=== PATIENT | female | born 1990 | race Caucasian/White ===

== ENCOUNTER → 2018-11-11 17:12 | Outpatient (CLI) | payer OTHER, SELFPAY ==
[2018-11-11 17:53] LABS: HCG,Quantitative 0 mIU/mL
== END ==
PROVIDERS: Visit Provider Obstetrics & Gynecology
DX: Z34.90 Encounter for supervision of normal pregnancy, unspecified, unspecified trimester (principal)
CPT/HCPCS: 36415; 84702

== ENCOUNTER → 2018-12-15 18:01 | Outpatient (CLI) | payer OTHER, SELFPAY ==
[2018-12-17 18:49] LABS: Progesterone 18.6 ng/mL (.)
== END ==
PROVIDERS: Visit Provider Obstetrics & Gynecology
DX: N97.0 Female infertility associated with anovulation (principal)
CPT/HCPCS: 36415; 84144

== ENCOUNTER → 2019-06-30 17:22 | Outpatient (CLI) | payer MEDICAID, SELFPAY ==
[2019-06-30 18:07] LABS: Basophils % 0.3 % (0.1-2.0); Eosinophils # 0.1 K/mm3 (0.0-0.4); Eosinophils % 1.1 % (0.1-12.0); Hematocrit 38.5 % (37.0-47.0); Hemoglobin 13.3 g/dL (12.2-16.2); Lymphocytes # 1.3 K/mm3 (0.7-4.5); Lymphocytes % 14.2 % (10-50); Mean Corpuscular HGB Conc 34.7 g/dL (31.8-35.4); Mean Corpuscular Hemoglobin 30.6 pg (27.0-31.2); Mean Corpuscular Volume 88.2 fl (81-99); Mean Platelet Volume 9.8 fl (7.4-10.4); Monocytes # 0.4 K/mm3 (0.1-1.0); Monocytes % 3.9 % (1.7-9.3); Neutrophils # 7.5 K/mm3 (1.8-7.8); Neutrophils % 80.5 % (37.0-80.0); Platelet Count 204 K/mm3 (142-424); Red Blood Count 4.36 M/mm3 (4.20-5.40); Red Cell Distribution Width 13.3 % (11.5-17.5); White Blood Count 9.3 K/mm3 (4.8-10.8)
[2019-06-30 18:44] LABS: Alanine Aminotransferase 9 U/L (12-78); Albumin Level 4.6 g/dl (3.5-5.0); Albumin/Globulin Ratio 1.6 (1.1-1.8); Alkaline Phosphatase 82 U/L (38-126); Anion Gap 11.1 mEq/L (5-15); Aspartate Amino Transferase 26 U/L (14-36); Bilirubin,Total 0.4 mg/dl (0.2-1.3); Blood Urea Nitrogen 18 mg/dl (7-17); Calcium 9.8 mg/dl (8.4-10.2); Carbon Dioxide 25 mmol/L (22.0-30.0); Chloride 106 mmol/L (98-107); Chol/HDL Ratio 1.9 (1-3.5); Cholesterol 124 mg/dl (140-200); Estimated Glomerular Filt Rate 100 ml/min (>60); GFR (African American) 121 ML/MIN (>60); Globulin 2.9 g/dL (1.3-3.2); Glucose 100 mg/dl (74-100); HDL Cholesterol 64 mg/dl (40-60); Potassium 4.1 mmoL/L (3.5-5.1); Sodium 138 mmol/L (136-145); Total Protein,Serum 7.5 g/dl (6.3-8.2); Triglycerides 44 mg/dl (30-150); VLDL Cholesterol 9 mg/dL (0-40)
[2019-06-30 18:56] LABS: Direct LDL Cholesterol 75.95 mg/dL (100-129)
[2019-06-30 18:59] LABS: T4 (Thyroxine) 9.8 ug/dl (5.53-11.0)
[2019-06-30 19:13] LABS: Thyroid Stimulating Hormone 2.35 uIU/mL (0.465-4.68)
[2019-07-02 09:57] LABS: Vitamin D 25 Hydroxy 48.8 ng/mL (30.0-100.0)
== END ==
PROVIDERS: Visit Provider Emergency Medicine
DX: M79.2 Neuralgia and neuritis, unspecified (principal)
CPT/HCPCS: 80053; 80061; 82652; 84436; 84443; 85025

== ENCOUNTER 2019-07-24 18:20 | Emergency (ER) | payer MEDICAID, SELFPAY ==
[2019-07-24 18:21] VITALS: BP 150/101; PULSE 80; RESP 18; TEMP 36.7; O2SAT 98; BMI 18.8
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
[2019-07-24 21:20] VITALS: BP 125/75; PULSE 76; RESP 17; TEMP 36.7; O2SAT 98
== END 2019-07-24 21:22 | disposition home or self-care (01) ==
PROVIDERS: Emergency Provider Emergency Medicine; PCP Emergency Medicine
DX: S61.012A Laceration without foreign body of left thumb without damage to nail, initial encounter (principal); W26.0XXA Contact with knife, initial encounter; Y92.019 Unspecified place in single-family (private) house as the place of occurrence of the external cause; Z23 Encounter for immunization; Z88.0 Allergy status to penicillin; Z88.5 Allergy status to narcotic agent; Z91.040 Latex allergy status; F17.210 Nicotine dependence, cigarettes, uncomplicated; F19.11 Other psychoactive substance abuse, in remission
CPT/HCPCS: 12001; 90471; 90714; 99282

== ENCOUNTER 2019-09-25 19:10 | Emergency (ER) | payer MEDICAID, SELFPAY ==
[2019-09-25 19:41] VITALS: BMI 18.8
--- NOTE | 2019-09-25 19:56 | HMH.EDUTC ---
[facility] [place] Clinical Impression: Bronchitis, Viral syndrome Disposition: Home, Self-Care Condition on Discharge: Good Instructions: Acute Bronchitis, DI for Acute Bronchitis, Preventing the Spread of Coronavirus Discharge Instructions Additional Instructions: Drink plenty of fluids. Take tylenol or ibuprofen for pain or fever. Take the medications as directed. Follow up with your regular doctor. GO TO THE ER FOR ANY WORSENING SYMPTOMS FOLLOW THE DIRECTIONS ON THE COVID-19 HAND OUT THAT WE GAVE YOU REGARDING SELF-ISOLATION UNTIL YOU KNOW YOUR COVID-19 RESULTS Prescriptions: Albuterol Sulfate [Albuterol Sulfate Hfa] 2 puffs IH Q6HP PRN 30 Days #1 hfa.aer.ad PRN Reason: Shortness Of Breath Transmission Status: Received by [facility] Azithromycin [Z-Chavez 250mg Tab*] 250 mg PO UD DOSE PK #6 tab Transmission Status: Received by [facility] Referrals: Jamir Styles MD [Primary Care Provider] - Forms: Work/School Release Time of Disposition: 19:59 Medical Decision Making - Medical Records Medical records reviewed: No: I reviewed the patient's medical records. - Leonardo Inquiry Pt receiving controlled substance: No Vital Signs: 09/25/19 20:01 09/25/19 20:08 Temperature 98.4 F 98.4 F Temperature Source Oral Pulse Rate 88 Pulse Rate [Right] 88 Respiratory Rate 20 20 Blood Pressure 137/85 Blood Pressure [Right Arm] 137/85 Blood Pressure Mean [Right Arm] 102 Blood Pressure Source [Right Arm] Automatic Cuff Blood Pressure Position [Right Arm] Sitting 02 Sat by Pulse Oximetry 96 Oxygen Delivery Method Room Air - Lab Data Lab results reviewed: Yes: I reviewed the patient's lab results. Lab Results 09/25/19 19:57: Strep Scn Rapid Clinic Negative Orders (Tests/Meds): ORDERS Category Date Time Status Coronavirus 19 Swab (OUTPT) Routine Lab 09/25/19 19:48 Received Strep Screen Confirmation Stat Micro 09/25/19 19:57 Received [facility] [place] HPI - General Stated complaint: covid symptoms Time Seen by Provider: 09/25/19 19:56 - History of Present Illness Provider Complaint: She reports that she has had a cough, chest congestion, head ache and feeling bad for the past 2 days. - Related Data Home Medications Medication Instructions Recorded Confirmed buprenorphine 8 mg-naloxone 2 mg 1 tab SUBLINGUAL BID tab 09/30/18 07/26/19 sublingual tablet Previous Rx's Medication Instructions Recorded prednisone 10 mg tablet 10 mg PO BID #10 tab 06/30/19 cephALEXin [Keflex 500mg Cap] 500 mg PO TID #30 cap 07/24/19 pantoprazole 40 mg tablet,delayed 40 mg PO DAILY #90 tab 07/28/19 release gabapentin 800 mg tablet 800 mg PO TID #90 tab 08/25/19 Albuterol Sulfate [Albuterol 2 puffs IH Q6HP PRN 30 Days #1 09/25/19 Sulfate Hfa] hfa.aer.ad Azithromycin [Z-Chavez 250mg Tab*] 250 mg PO UD DOSE PK #6 tab 09/25/19 Allergies Allergy/AdvReac Type Severity Reaction Status Date / Time acetaminophen Allergy Unknown Verified 07/26/19 13:14 [From TYLENOL-CODEINE #3] amoxicillin [AMOXICILLIN] Allergy Unknown Verified 07/26/19 13:14 codeine Allergy Unknown Verified 07/26/19 13:14 [From TYLENOL-CODEINE #3] Penicillins [PENICILLINS] Allergy Unknown Verified 07/26/19 13:14 latex Allergy Verified 07/26/19 13:14 tramadol [From Ultram] Allergy Verified 07/26/19 13:14 [facility] History - Hepatitis A Screen Attestation statement:: This patient has been screened for Hepatitis A risk factors. I have reviewed the patient's past medical history: Yes Medical History: Denies:: Cancer, Diabetes Mellitus Type 1, Diabetes Mellitus Type 2, MRSA Other Surgeries: Yes: Appendectomy, Amputation: No Fractures: No Comment: 2003-fatty cyst removed. 2005-fatty cytst removed. 2013-D&E X 2. 11/28-R. Paul, [employer]. 11/28/13-*C/S - Social History Smoking Status: Current every day smoker Tobacco Type: cigarettes # Packs/Day (ciga
[2019-09-25 20:01] VITALS: BP 137/85; PULSE 88; RESP 20; TEMP 36.9; O2SAT 96; BMI 18.8
[2019-09-25 20:08] VITALS: BP 137/85; PULSE 88; RESP 20; TEMP 36.9; O2SAT 96
[2019-09-25 20:16] LABS: UTC Strep Screen (Rapid) Negative (Negative)
== END 2019-09-25 20:15 | disposition home or self-care (01) ==
PROVIDERS: Emergency Provider Nurse Practitioner Family; PCP Emergency Medicine
DX: J20.9 Acute bronchitis, unspecified (principal); B34.9 Viral infection, unspecified; F17.210 Nicotine dependence, cigarettes, uncomplicated; Z88.0 Allergy status to penicillin; Z88.6 Allergy status to analgesic agent; Z03.818 Encounter for observation for suspected exposure to other biological agents ruled out
CPT/HCPCS: 87880; 99202; U0003

== ENCOUNTER 2020-03-01 18:59 | Emergency (ER) | payer MEDICAID, SELFPAY ==
[2020-03-01 19:20] VITALS: BP 142/85; PULSE 81; RESP 14; TEMP 36.7; O2SAT 98; BMI 20.6
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
[2020-03-01 20:03] LABS: Apearance,Urine Slightly Cloudy (Clear); Color,Urine Dark Yellow (Yellow); PH,Urine 6.5 (5.0-8.5)
[2020-03-01 20:04] LABS: Bilirubin,Urine Negative (Negative); Blood, Urine Negative (Negative); Glucose,Urine (UA) Negative (Negative); Ketones,Urine Negative (Negative); Protein,Urine Negative (Negative); UTC Leukocyte Esterase,Urine Negative (Negative); Urobilinogen,Urine 0.2 EU/dl (0.2)
[2020-03-01 20:05] LABS: UTC Nitrate,Urine Positive (Negative)
[2020-03-01 20:10] VITALS: BP 142/85; PULSE 81; RESP 14; TEMP 36.7; O2SAT 98
== END 2020-03-01 20:19 | disposition home or self-care (01) ==
PROVIDERS: Emergency Provider Physician Assistant; PCP Emergency Medicine
DX: Z20.822 Contact with and (suspected) exposure to COVID-19 (principal); N30.00 Acute cystitis without hematuria; K21.9 Gastro-esophageal reflux disease without esophagitis; F19.11 Other psychoactive substance abuse, in remission; F17.210 Nicotine dependence, cigarettes, uncomplicated
CPT/HCPCS: 81003; 87086; 99202; G0463; U0003

== ENCOUNTER 2020-03-08 19:36 | Emergency (ER) | payer MEDICAID, SELFPAY ==
[2020-03-08 19:34] VITALS: BP 133/103; PULSE 98; RESP 14; TEMP 36.6; O2SAT 98; BMI 19.5
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
[2020-03-08 19:54] LABS: Basophils # 0.1 K/mm3 (0-0.2); Basophils % 0.5 % (0.1-2.0); Eosinophils # 0.1 K/mm3 (0.0-0.4); Eosinophils % 0.9 % (0.1-12.0); Hemoglobin 14.9 g/dL (12.2-16.2); Lymphocytes # 2.1 K/mm3 (0.7-4.5); Lymphocytes % 21.5 % (10-50); Mean Corpuscular HGB Conc 33.2 g/dL (31.8-35.4); Mean Corpuscular Volume 90.5 fl (81-99); Mean Platelet Volume 10.2 fl (7.4-10.4); Monocytes # 0.4 K/mm3 (0.1-1.0); Monocytes % 4.4 % (1.7-9.3); Neutrophils # 7.3 K/mm3 (1.8-7.8); Neutrophils % 72.7 % (37.0-80.0); Platelet Count 182 K/mm3 (142-424); Red Blood Count 4.97 M/mm3 (4.20-5.40); Red Cell Distribution Width 13.1 % (11.5-17.5)
--- NOTE | 2020-03-08 19:54 | PC.NURSE ---
pt completed po contrast
[2020-03-08 19:55] LABS: Urine Pregnancy, HCG Qual. Negative (Negative)
[2020-03-08 20:01] LABS: Alanine Aminotransferase 13 U/L (12-78); Albumin Level 4.6 g/dl (3.5-5.0); Albumin/Globulin Ratio 1.6 (1.1-1.8); Alkaline Phosphatase 72 U/L (38-126); Anion Gap 11.8 mEq/L (5-15); Aspartate Amino Transferase 25 U/L (14-36); Bilirubin,Total 0.4 mg/dl (0.2-1.3); Blood Urea Nitrogen 13 mg/dl (7-17); Calcium 9.4 mg/dl (8.4-10.2); Carbon Dioxide 25 mmol/L (22.0-30.0); Chloride 106 mmol/L (98-107); Creatinine Clearance Estimated 119 mL/min (50-200); Estimated Glomerular Filt Rate 99 ml/min (>60); GFR (African American) 120 ML/MIN (>60); Globulin 2.9 g/dL (1.3-3.2); Glucose 89 mg/dl (74-100); Sodium 140 mmol/L (136-145); Total Protein,Serum 7.5 g/dl (6.3-8.2)
[2020-03-08 20:04] VITALS: BP 142/97; PULSE 105; O2SAT 99
[2020-03-08 20:05] LABS: Potassium 2.8 mmoL/L (3.5-5.1)
--- NOTE | 2020-03-08 20:06 | PC.NURSE ---
notified of potassium of 2.8
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
[2020-03-08 20:12] LABS: Microscopic, Urine URINE MICROSCOPIC (MICROSCOPIC)
[2020-03-08 20:13] LABS: Appearance,Urine CLEAR (Clear); Bilirubin,Urine Negative (Negative); Blood, Urine Negative (Negative); Color,Urine YELLOW (Yellow); Glucose,Urine (UA) Negative (Negative); Ketones,Urine Negative (Negative); Leukocyte Esterase,Urine Negative (Negative); Nitrate,Urine Negative (Negative); PH,Urine 6.5 (5.0-8.5); Protein,Urine TRACE (Negative); Urobilinogen,Urine 0.2 EU/dl (0.2)
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
[2020-03-08 20:30] VITALS: BP 141/86; PULSE 78; O2SAT 99
[2020-03-08 20:32] LABS: Amorphous Sediment,Urine 1+ /lpf; Mucus,Urine 1+ /lpf
[2020-03-08 20:47] LABS: Magnesium 1.7 mg/dl (1.6-2.3)
[2020-03-08 22:00] VITALS: BP 143/81; PULSE 85; O2SAT 99
--- NOTE | 2020-03-08 22:18 | PC.NURSE ---
pt returned from ct scan
[2020-03-08 22:30] VITALS: BP 115/78; PULSE 74; O2SAT 96
[2020-03-08 23:10] VITALS: BP 131/73; PULSE 90; RESP 14; TEMP 36.6; O2SAT 99
--- NOTE | 2020-03-08 23:17 | PC.NURSE ---
soft cervical collar applied pt tolerated well and verbalize instructions
== END 2020-03-08 23:12 | disposition home or self-care (01) ==
PROVIDERS: Emergency Provider Emergency Medicine; PCP Emergency Medicine
DX: S00.03XA Contusion of scalp, initial encounter (principal); S13.9XXA Sprain of joints and ligaments of unspecified parts of neck, initial encounter; S39.91XA Unspecified injury of abdomen, initial encounter; V43.52XA Car driver injured in collision with other type car in traffic accident, initial encounter; Y92.414 Local residential or business street as the place of occurrence of the external cause
CPT/HCPCS: 29799; 70450; 71045; 72125; 72170; 74177; 80053; 81001; 81025; 83735; 85025; 96375; 99283; J2405; Q9967

== ENCOUNTER → 2020-03-26 09:00 | Outpatient (CLI) | payer MEDICAID, SELFPAY ==
--- NOTE | 2020-03-26 09:05 | NM_ITS ---
PROCEDURE: NM BONE SCAN WHOLE BODY CLINICAL INDICATION: abnormal CT Scan Sclerotic lesions of the spine COMPARISON: CT CT ABDOMEN PELVIS W CON from 03/08/[address] HEAD/BRAIN WO CON from 03/08/2020 FINDINGS: Dose: 24.8 mCi technetium MDP Anterior and posterior images are obtained of the entire skeleton along with oblique images of this thoracic and lumbar spine. No focal abnormal activity is evident. Spur specifically, no abnormal activity present within the lumbar spine. The sclerotic lesions at T12-L1 L2 and L3 do not show increased activity. This would therefore suggest benign etiology of the sclerotic lesions. Follow-up is suggested to confirm stability. There is some increased activity in the medial aspect of the ilium on both sides however, these areas have an unremarkable appearance on the CT scan. There is a small focus of increased activity in the central aspect of the frontal region and in the left parietal bone. IMPRESSION: 1. No abnormal activity in the lumbar spine that would correspond to the sclerotic lesions on the CT scan. Benign sclerotic process is considered. Consider follow-up CT scan in 3-6 months to confirm stability. 2. Small focus of increased activity in the central aspect of the frontal area and in the left parietal region. These are questionable clinical significance and could even be due to contamination artifact. Dictated by: Arturo Sy MD 03/27/2020 20:47 Arturo Sy MD in [place] 03/27/2020 20:47
== END ==
PROVIDERS: PCP Emergency Medicine; Visit Provider Emergency Medicine
DX: R93.89 Abnormal findings on diagnostic imaging of other specified body structures (principal)
CPT/HCPCS: 78306; A9503

== ENCOUNTER 2020-05-13 16:14 | Emergency (ER) | payer MEDICAID, SELFPAY ==
[2020-05-13 16:48] VITALS: BP 136/67; PULSE 71; RESP 16; TEMP 37.3; O2SAT 97; BMI 20.5
--- NOTE | 2020-05-13 17:03 | HMH.EDUTC ---
[facility] [place] Dis[place] Clinical Impression: Strep throat Disposition: Home, Self-Care Condition on Discharge: Good Instructions: DI for Strep Throat, Strep Throat Additional Instructions: *If you did not take Penicillin shot or was unable to, start taking antibiotic immediately and make sure that you take it for the FULL length of time although you should start to feel better in 24-48 hours *change toothbrush and toothpaste 24-48 hours after starting to take antibiotics so you do not reinfect yourself Monitor Temp. Tylenol and/or Ibuprofen as needed. ER if fever is no less than 101 despite alternating Tylenol and Ibuprofen * Encourage fluids, water, Gatorade, powerade, pedialyte if /toddler/or child *Cold fluids, popsicles and ice cream may feel good on his throat *Monitor Temp, Over the counter Motrin or Tylenol as directed/as needed Tylenol every 4 hours and Motrin every 6 hours (as long as your family doctor has told you that you can take it) for fever or pain. and straight to ER if unable to lower temp less than 101.0 after medication given *Warm salt water gargles may help to soothe the throat *Throat Lozenges *Warm fluids like tea with honey may help to soothe the throat *Sleep elevated *Humidifier/Vaporizer Prescriptions: guaiFENesin [Mucinex 600mg tablet] 600 mg PO BID #20 tab.er.12h Transmission Status: Pending to [facility] Azithromycin [Z-Chavez 250mg Tab] 250 mg PO DIRECTED #6 tab Transmission Status: Pending to [facility] Referrals: Jamir Styles MD [Primary Care Provider] - As needed Forms: Work/School Release Time of Disposition: 17:14 Medical Decision Making - Leonardo Inquiry Pt receiving controlled substance: No Leonardo was queried for this patient: No Vital Signs: 05/13/20 16:48 Temperature 99.1 F Temperature Source Oral Pulse Rate [Right] 71 Respiratory Rate 16 Blood Pressure [Right Arm] 136/67 Blood Pressure Mean [Right Arm] 90 Blood Pressure Source [Right Arm] Automatic Cuff Blood Pressure Position [Right Arm] Sitting 02 Sat by Pulse Oximetry 97 - Lab Data Lab results reviewed: Yes: I reviewed the patient's lab results. [facility] [place] HPI - General Stated complaint: COUGH, BODY PAINS Time Seen by Provider: 05/13/20 17:03 Mode of Arrival: Ambulatory Source of Information: Patient Limitations: No Limitations Description of Symptoms (Recalled from Triage Doc. by RN): pt is having a nasal drainage, a productive cough with yellow sputum and a sore throat. HEENT Symptoms (Recalled from RN notes): Yes (nasal drainage and sore throat) Resp Symptoms (Recalled from RN notes): Yes (productive cough with yellow sputum) Skin Symptoms (Recalled from RN notes): No MS Symptoms (Recalled from RN notes): No Functional Status (Recalled from RN notes): na - History of Present Illness Provider Complaint: Patient states that she has been having some sinus pressure and congestion, sore throat, drainage and at times she is coughing up some mucous States that today she has been having body aches, chills and over all not feeling well State that she is an everyday smoker States that often this time of year she gets sinusitis and bronchitis State that work also wanted her to get tested for COVID - Related Data Home Medications Medication Instructions Recorded Confirmed buprenorphine 8 mg-naloxone 2 mg 1 tab SUBLINGUAL BID tab 09/30/18 02/21/20 sublingual tablet Previous Rx's Medication Instructions Recorded Albuterol Sulfate [Albuterol 2 puffs IH Q6HP PRN 30 Days #1 09/25/19 Sulfate Hfa] hfa.aer.ad gabapentin 800 mg tablet 800 mg PO QID #120 tab 02/21/20 [id number]-eeehnfabt-lcsfjcfhf 3.5 1 drp OTIC DAILY 14 Days #10 ml 02/21/20 mg/mL-10,000 unit/mL-1 % ear solution Sulfamethoxazole/Trimethoprim 1 each PO BID 10 Days #20 tab 03/01/20 [Bactrim DS tablet] Cyclobenzaprine HCl [Flexeril 10mg 10 mg PO TID PRN 7 Days #21 tab 03/08/20 tablet] Ketorolac Tr
[2020-05-13 17:10] LABS: UTC Strep Screen (Rapid) Positive (Negative)
[2020-05-13 17:29] VITALS: BP 129/87; PULSE 76; RESP 16; TEMP 36.6
== END 2020-05-13 17:29 | disposition home or self-care (01) ==
PROVIDERS: Emergency Provider Nurse Practitioner; PCP Emergency Medicine
DX: Z20.822 Contact with and (suspected) exposure to COVID-19 (principal); J02.0 Streptococcal pharyngitis; K21.9 Gastro-esophageal reflux disease without esophagitis; J45.909 Unspecified asthma, uncomplicated; F17.210 Nicotine dependence, cigarettes, uncomplicated; Z88.0 Allergy status to penicillin; Z91.040 Latex allergy status
CPT/HCPCS: 87880; 99202; G0463; U0003

== ENCOUNTER → 2020-06-14 13:40 | Outpatient (CLI) | payer MEDICAID, SELFPAY ==
[2020-06-14 15:38] LABS: Amphetamine/Metha Screen,Urine Negative ng/ml (<1000)
[2020-06-14 15:39] LABS: Barbiturates Screen,Urine Negative ng/ml (<200)
[2020-06-14 15:41] LABS: Benzodiazepines Screen,Urine Negative ng/ml (<200); Cannabinoid Screen,Urine Negative ng/ml (<50)
[2020-06-14 15:42] LABS: Cocaine Screen,Urine Negative ng/ml (<300)
[2020-06-14 15:43] LABS: Methadone Screen,Urine Negative ng/ml (<300); Opiate Screen,Urine Negative ng/ml (<300)
[2020-06-14 15:44] LABS: Phencyclidine Screen,Urine Negative ng/ml (<25)
== END ==
PROVIDERS: Visit Provider Nurse Practitioner Family
DX: Z79.899 Other long term (current) drug therapy (principal)
CPT/HCPCS: 80305

== ENCOUNTER 2020-07-30 18:42 | Emergency (ER) | payer MEDICAID, SELFPAY ==
[2020-07-30 19:23] VITALS: BP 114/80; PULSE 77; RESP 17; TEMP 37.1; O2SAT 97; BMI 20.2
[2020-07-30 19:26] VITALS: BP 114/80; PULSE 77; RESP 17; TEMP 37.1; O2SAT 97
--- NOTE | 2020-07-30 19:43 | HMH.EDUTC ---
[facility] [place] Impression: Bronchitis Upper respiratory infection Qualifiers: URI type: unspecified URI Qualified Code(s): J06.9 - Acute upper respiratory infection, unspecified Disposition: Home, Self-Care Condition on Discharge: Good Instructions: DI for Acute Bronchitis Additional Instructions: Drink plenty of fluids. Take tylenol or ibuprofen for pain or fever. Take the medications as directed. Follow up with your regular doctor. GO TO THE ER FOR ANY WORSENING SYMPTOMS Prescriptions: predniSONE [Prednisone 20mg Tab] 20 mg PO BID 4 Days #8 tab Transmission Status: Received by [facility] Benzonatate [Tessalon Perle 100mg Cap] 100 mg PO TIDP PRN #30 cap PRN Reason: Cough Transmission Status: Received by [facility] Azithromycin [Z-Chavez 250mg Tab*] 250 mg PO UD DOSE PK #6 tab Transmission Status: Received by [facility] Referrals: Jamir Styles MD [Primary Care Provider] - Forms: Work/School Release Time of Disposition: 19:45 Medical Decision Making - Medical Records Medical records reviewed: No: I reviewed the patient's medical records. - Leonardo Inquiry Pt receiving controlled substance: No Vital Signs: 07/30/20 19:23 07/30/20 19:26 Temperature 98.8 F 98.8 F Temperature Source Oral Pulse Rate 77 Pulse Rate [Left] 77 Respiratory Rate 17 17 Blood Pressure 114/80 Blood Pressure [Right Arm] 114/80 Blood Pressure Mean [Right Arm] 91 02 Sat by Pulse Oximetry 97 - Lab Data Lab Results 07/30/20 19:26: Strep Scn Rapid Clinic Negative Orders (Tests/Meds): ORDERS Category Date Time Status Covid-19 Nasal PCR ([facility]) Routine Lab 07/30/20 19:37 Received Strep Screen Confirmation Stat Micro 07/30/20 19:[address] [facility] [place] - General Stated complaint: Cough,fever,sore throat,runny nose Time Seen by Provider: 07/30/20 19:43 Mode of Arrival: Ambulatory Source of Information: Patient Limitations: No Limitations Description of Symptoms (Recalled from Triage Doc. by RN): Fever, cough, sore throat, runny nose congestion. Wants Covid test for work. HEENT Symptoms (Recalled from RN notes): Yes Resp Symptoms (Recalled from RN notes): Yes Skin Symptoms (Recalled from RN notes): No MS Symptoms (Recalled from RN notes): No Functional Status (Recalled from RN notes): wnl - History of Present Illness Provider Complaint: She states that she has had a cough, low grade fever, right ear pain and sore throat for the past 2 days. - Related Data Home Medications Medication Instructions Recorded Confirmed buprenorphine 8 mg-naloxone 2 mg 1 tab SUBLINGUAL BID tab 09/30/18 06/14/20 sublingual tablet Previous Rx's Medication Instructions Recorded albuterol sulfate 90 mcg/actuation 2 inh INHALATION Q4-6H PRN #1 each 06/14/20 breath activated powder inhaler gabapentin 800 mg tablet 800 mg PO QID #120 tab 06/14/20 Azithromycin [Z-Chavez 250mg Tab*] 250 mg PO UD DOSE PK #6 tab 07/30/20 Benzonatate [Tessalon Perle 100mg 100 mg PO TIDP PRN #30 cap 07/30/20 Cap] predniSONE [Prednisone 20mg 20 mg PO BID 4 Days #8 tab 07/30/20 Tab] Allergies Allergy/AdvReac Type Severity Reaction Status Date / Time acetaminophen Allergy Unknown Verified 07/30/20 19:11 [From TYLENOL-CODEINE #3] amoxicillin [AMOXICILLIN] Allergy Unknown Verified 07/30/20 19:11 codeine Allergy Unknown Verified 07/30/20 19:11 [From TYLENOL-CODEINE #3] Penicillins [PENICILLINS] Allergy Unknown Verified 07/30/20 19:11 latex Allergy Verified 07/30/20 19:11 tramadol [From Ultram] Allergy Verified 07/30/20 19:11 - Worker's Comp Is this a Worker's Comp case?: No [facility] History - Hepatitis A Screen Drug use history?: No High risk sexual behaviors?: No History of sexually transmitted infection?: No Currently employed?: No Childcare worker?: No Do you have indoor plumbing?: Yes Do you have electricity?: Yes Attestation statement:: T
[2020-07-30 19:45] LABS: UTC Strep Screen (Rapid) Negative (Negative)
== END 2020-07-30 19:48 | disposition home or self-care (01) ==
PROVIDERS: Emergency Provider Nurse Practitioner Family; PCP Emergency Medicine
DX: J20.9 Acute bronchitis, unspecified (principal); J45.909 Unspecified asthma, uncomplicated; K21.9 Gastro-esophageal reflux disease without esophagitis; Z20.822 Contact with and (suspected) exposure to COVID-19; Z91.040 Latex allergy status; Z88.0 Allergy status to penicillin; Z88.5 Allergy status to narcotic agent
CPT/HCPCS: 87880; 99202; G0463; U0003

== ENCOUNTER 2020-08-15 18:51 | Emergency (ER) | payer MEDICAID, SELFPAY ==
[2020-08-15 18:55] VITALS: BP 112/78; PULSE 75; RESP 18; TEMP 36.9; O2SAT 97; BMI 20.2
--- NOTE | 2020-08-15 19:09 | HMH.EDUTC ---
[facility] [place] Clinical Impression: Sinusitis Qualifiers: Sinusitis location: unspecified location Chronicity: unspecified Qualified Code(s): J32.9 - Chronic sinusitis, unspecified Disposition: Home, Self-Care Condition on Discharge: Good Instructions: Sinusitis, DI for Sinusitis, Doxycycline, Prednisone, Guaifenesin, Albuterol Oral Inhalation Additional Instructions: ? Start antibiotic today. Be sure to complete entire prescription even if feeling better ? Monitor temp. Tylenol every 4 hours as needed and / or ibuprofen every 6 hours as needed ( As long as your primary care physician has told you that it ok to take both. For fever/aches/pains ER if no less than 101 despite Tylenol or Motrin ? Humidifier/vaporizer or hot steamy shower ? Inhaler every 4-6 hours as needed like we discussed. If unsure how to use it, ask pharmacist to demonstrate how. Should help open airways and improve cough, wheezing, and shortness of breath ? Mucinex during the day for your cough and cough suppressant only at night. Be sure to drink lots of water. *Start steroid today. Helps with inflammation therefore, cough and wheezing. Follow directions on the package. Reviewed side effects. Patient reports taking them before. Follow up IMMEDIATELY for new or worsening of symptoms OR no noticeable improvement over the next 48-72 hours. 911 immediately for any life threatening symptoms such as chest pain or difficulty breathing Prescriptions: Albuterol Sulfate [Proventil-HFA 90mcg/puff Inh] 1 - 2 puffs IH Q4HP PRN #1 inh PRN Reason: Shortness Of Breath Transmission Status: Pending to [facility] predniSONE [Deltasone 10mg tablet] 10 mg PO BID #10 tab Transmission Status: Pending to [facility] Doxycycline Monohydrate [Doxycycline [place] 100mg Tab] 100 mg PO Q12 7 Days #14 tab Transmission Status: Pending to [facility] guaiFENesin [Mucinex 600mg tablet] 1 - 2 tab PO Q12H PRN #10 tab.er.12h PRN Reason: Congestion Transmission Status: Pending to [facility] Referrals: Jamir Styles MD [Primary Care Provider] - As needed Forms: Work/School Release Time of Disposition: 19:23 Medical Decision Making - Leonardo Inquiry Pt receiving controlled substance: No Leonardo was queried for this patient: No Vital Signs: 08/15/20 18:55 Temperature 98.4 F Temperature Source Oral Pulse Rate [Right Brachial] 75 Respiratory Rate 18 Blood Pressure [Right Arm] 112/78 Blood Pressure Mean [Right Arm] 89 Blood Pressure Source [Right Arm] Automatic Cuff Blood Pressure Position [Right Arm] Sitting 02 Sat by Pulse Oximetry 97 Oxygen Delivery Method Room Air [facility] [place] - General Stated complaint: nausea,cough, diff breathing Time Seen by Provider: 08/15/20 19:11 Mode of Arrival: Ambulatory Source of Information: Patient Limitations: No Limitations Description of Symptoms (Recalled from Triage Doc. by RN): PATIENT C/O COUGH, CONGESTION, HEADACHE, AND NAUSEA X 3 WEEKS HEENT Symptoms (Recalled from RN notes): Yes Resp Symptoms (Recalled from RN notes): Yes Skin Symptoms (Recalled from RN notes): No MS Symptoms (Recalled from RN notes): No Functional Status (Recalled from RN notes): WNL - History of Present Illness Provider Complaint: Patient states that she has been having sinus pain and pressure, cough, chest congestion and nausea States that she was seen about 3weeks ago and given zpack States that she finished it but it did not help States that she is still having sinus pain and feeling like she has pressure behind her eyes States that today she was coughing and it made her feel a little SOA States that she is suppose to use inhaler but she is out - Related Data Home Medications Medication Instructions Recorded Confirmed buprenorphine 8 mg-naloxone 2 mg 1 tab SUBLINGUAL BID tab 09/30/18 08/15/20 sublingual tablet Gabapentin 800 mg PO QID 08/15/20 08/15/20 Previous Rx's Medication Instructions Recorded Freddy
[2020-08-15 19:25] VITALS: BP 112/78; PULSE 75; RESP 18; TEMP 36.9; O2SAT 97
== END 2020-08-15 19:28 | disposition home or self-care (01) ==
PROVIDERS: Emergency Provider Nurse Practitioner; PCP Emergency Medicine
DX: J32.9 Chronic sinusitis, unspecified (principal); K21.9 Gastro-esophageal reflux disease without esophagitis; J45.909 Unspecified asthma, uncomplicated; Z88.0 Allergy status to penicillin; Z88.5 Allergy status to narcotic agent

== ENCOUNTER 2020-08-30 19:47 | Emergency (ER) | payer MEDICAID, SELFPAY ==
[2020-08-30 19:50] VITALS: BP 126/88; PULSE 69; RESP 19; TEMP 36.9; O2SAT 99; BMI 22.8
[2020-08-30 20:22] LABS: UTC Strep Screen (Rapid) Negative (Negative)
--- NOTE | 2020-08-30 20:37 | HMH.EDUTC ---
[facility] [place] Disposition Clinical Impression: Pharyngitis, Bronchitis Disposition: Home, Self-Care Condition on Discharge: Good Instructions: DI for Acute Bronchitis Additional Instructions: Drink plenty of fluids Take the medication as directed. Follow up with your primary care doctor. GO TO THE ER FOR ANY WORSENING SYMPTOMS OR CONCERNS Prescriptions: predniSONE [Prednisone 20mg Tab] 20 mg PO BID 4 Days #8 tab Transmission Status: Received by [id number] Benzonatate [Tessalon Perle 100mg Cap] 100 mg PO TIDP PRN #30 cap PRN Reason: Cough Transmission Status: Received by [id number] Azithromycin [Z-Chavez 250mg Tab*] 250 mg PO UD DOSE PK #6 tab Transmission Status: Received by [id number] Referrals: Jamir Styles MD [Primary Care Provider] - Forms: Work/School Release Time of Disposition: 20:40 Medical Decision Making - Medical Records Medical records reviewed: No: I reviewed the patient's medical records. - Leonardo Inquiry Pt receiving controlled substance: No Vital Signs: 08/30/20 19:50 08/30/20 20:43 Temperature 98.5 F 98.5 F Temperature Source Oral Pulse Rate 69 Pulse Rate [Right Brachial] 69 Respiratory Rate 19 19 Blood Pressure 126/88 Blood Pressure [Right Arm] 126/88 Blood Pressure Mean [Right Arm] 100 Blood Pressure Source [Right Arm] Automatic Cuff Blood Pressure Position [Right Arm] Sitting 02 Sat by Pulse Oximetry 99 Oxygen Delivery Method Room Air - Lab Data Lab results reviewed: Yes: I reviewed the patient's lab results. Lab Results 08/30/20 20:21: Strep Scn Rapid Clinic Negative Orders (Tests/Meds): ORDERS Category Date Time Status Covid-19 Nasal PCR ([facility]) Routine Lab 08/30/20 20:31 Received Strep Screen Confirmation Stat Micro 08/30/20 20:[address] [facility] [place] HPI - General Stated complaint: cough runny nose sore throat sneezing Time Seen by Provider: 08/30/20 20:00 Mode of Arrival: Ambulatory Source of Information: Patient Limitations: No Limitations Description of Symptoms (Recalled from Triage Doc. by RN): PATIENT C/O SORE THROAT SINCE THIS MORNING HEENT Symptoms (Recalled from RN notes): Yes Resp Symptoms (Recalled from RN notes): No Skin Symptoms (Recalled from RN notes): No MS Symptoms (Recalled from RN notes): No Functional Status (Recalled from RN notes): WNL - History of Present Illness Provider Complaint: She states that for the past 3 days she has had a cough, sore throat and sinus congestion. - Related Data Previous Rx's Medication Instructions Recorded Azithromycin [Z-Chavez 250mg Tab*] 250 mg PO UD DOSE PK #6 tab 08/30/20 Benzonatate [Tessalon Perle 100mg 100 mg PO TIDP PRN #30 cap 08/30/20 Cap] predniSONE [Prednisone 20mg 20 mg PO BID 4 Days #8 tab 08/30/20 Tab] Allergies Allergy/AdvReac Type Severity Reaction Status Date / Time acetaminophen Allergy Unknown Verified 07/30/20 19:11 [From TYLENOL-CODEINE #3] amoxicillin [AMOXICILLIN] Allergy Unknown Verified 07/30/20 19:11 codeine Allergy Unknown Verified 07/30/20 19:11 [From TYLENOL-CODEINE #3] Penicillins [PENICILLINS] Allergy Unknown Verified 07/30/20 19:11 latex Allergy Verified 07/30/20 19:11 tramadol [From Ultram] Allergy Verified 07/30/20 19:11 - Worker's Comp Is this a Worker's Comp case?: No [facility] History - Hepatitis A Screen Drug use history?: No High risk sexual behaviors?: No History of sexually transmitted infection?: No Currently employed?: No Childcare worker?: No Do you have indoor plumbing?: Yes Do you have electricity?: Yes Attestation statement:: This patient has been screened for Hepatitis A risk factors. I have reviewed the patient's past medical history: Yes Medical History: Reports:: Asthma, Gastroesophageal Reflux Disease(GERD) Denies:: Cancer, Diabetes Mellitus Type 1, Diabetes Mellitus Type 2, MRSA Other Surgeries: Yes: Appendectomy, Amputation: No F
[2020-08-30 20:43] VITALS: BP 126/88; PULSE 69; RESP 19; TEMP 36.9; O2SAT 99
== END 2020-08-30 20:49 | disposition home or self-care (01) ==
PROVIDERS: Emergency Provider Nurse Practitioner Family; PCP Emergency Medicine
DX: J02.9 Acute pharyngitis, unspecified (principal); J20.9 Acute bronchitis, unspecified; J45.909 Unspecified asthma, uncomplicated; K21.9 Gastro-esophageal reflux disease without esophagitis; F17.210 Nicotine dependence, cigarettes, uncomplicated
CPT/HCPCS: 87880; 99203; G0463; U0003

== ENCOUNTER → 2020-09-02 15:35 | Outpatient (CLI) | payer MEDICAID, SELFPAY ==
[2020-09-02 17:09] LABS: Adenovirus,PCR Not Detected (NotDetected); Bordetella Pertussis Not Detected (NotDetected); Chlamydophila Pneumoniae, PCR Not Detected (NotDetected); Coronavirus 19, PCR Not Detected (NotDetected); Coronavirus 229E Not Detected (NotDetected); Coronavirus NL63 Not Detected (NotDetected); Coronavirus OC43 Not Detected (NotDetected); Coronovirus HKU1,PCR Not Detected (NotDetected); Human Metapneumovirus Not Detected (NotDetected); Influenza A, PCR Not Detected (NotDetected); Influenza AH1, 2009 Not Detected (NotDetected); Influenza AH1, PCR Not Detected (NotDetected); Influenza AH3,PCR Not Detected (NotDetected); Influenza B, PCR Not Detected (NotDetected); Mycoplasma Pneumoniae, PCR Not Detected (NotDetected); Parainfluenza 1, PCR Not Detected (NotDetected); Parainfluenza 2, PCR Not Detected (NotDetected); Parainfluenza 3, PCR Not Detected (NotDetected); Parainfluenza 4, PCR Not Detected (NotDetected); Rhinovirus/Enterovirus Not Detected (NotDetected)
[2020-09-02 23:25] LABS: Respiratory Syncytial Virus Detected (NotDetected)
== END ==
PROVIDERS: PCP Emergency Medicine; Visit Provider Emergency Medicine
DX: Z20.822 Contact with and (suspected) exposure to COVID-19 (principal); B97.4 Respiratory syncytial virus as the cause of diseases classified elsewhere
CPT/HCPCS: 87581; 87633; 87798

== ENCOUNTER 2020-09-11 19:49 | Emergency (ER) | payer MEDICAID, SELFPAY ==
[2020-09-11 20:04] VITALS: BP 130/87; PULSE 92; RESP 18; TEMP 36.8; O2SAT 99; BMI 18.8
--- NOTE | 2020-09-11 20:09 | CT_ITS ---
PROCEDURE INFORMATION: Exam: CT Head Without Contrast Exam date and time: 09/11/2020 8:09 PM Age: 30 years old Clinical indication: Pain; Headache not specified; Patient HX: Headache x 2 days TECHNIQUE: Imaging protocol: Computed tomography of the head without contrast. Radiation optimization: All CT scans at this facility use at least one of these dose optimization techniques: automated exposure control; mA and/or kV adjustment per patient size (includes targeted exams where dose is matched to clinical indication); or iterative reconstruction. COMPARISON: CT HEAD/BRAIN WO CON 03/08/2020 9:35 PM FINDINGS: Brain: No large territorial infarction. No hemorrhage. No mass effect or midline shift. Cerebral ventricles: No ventriculomegaly. Paranasal sinuses: Mucosal thickening of the anterior ethmoid air cells and right frontal sinus. No air-fluid level. Mastoid air cells: Visualized mastoid air cells are well aerated. Bones/joints: No acute fracture. Soft tissues: No significant soft tissue abnormality. IMPRESSION: Chronic appearing paranasal sinus disease.
--- NOTE | 2020-09-11 20:15 | HMH.EDGENADL ---
ED Disposition Clinical Impression: Migraine Qualifiers: Migraine type: without aura Status migrainosus presence: without status migrainosus Intractability: not intractable Qualified Code(s): G43.009 - Migraine without aura, not intractable, without status migrainosus Disposition: Home, Self-Care Condition on Discharge: Good Additional Instructions: Follow-up with your primary care doctor. Return to the emergency department for any new or worsening symptoms. Referrals: Jamir Styles MD [Primary Care Provider] - - Critical Care Critical Care Time: No Attestation: On 09/11/20, the high probability of a clinically significant, sudden or life threatening deterioration of the following system(s) required my full and direct attention, intervention and personal management. The time I documented below is in addition to time spent performing reported procedures but includes the following listed in this critical care notation. Medical Decision Making - Leonardo Inquiry Pt receiving controlled substance: No Vital Signs: 09/11/20 20:04 Temperature 98.2 F Temperature Source Oral Pulse Rate [Right Brachial] 92 H Respiratory Rate 18 Blood Pressure [Right Arm] 130/87 Blood Pressure Mean [Right Arm] 101 Blood Pressure Source [Right Arm] Automatic Cuff Blood Pressure Position [Right Arm] Sitting 02 Sat by Pulse Oximetry 99 Oxygen Delivery Method Room Air Orders (Tests/Meds): ED MEDICATIONS Generic Name Dose Route Start Last Admin Trade Name Freq PRN Reason Stop Dose Admin Lactated Ringer's 1,000 mls @ 999 mls/hr 09/11/20 20:15 09/11/20 20:23 Lactated Ringer's 1000 Ml Bag IV 09/11/20 21:15 999 mls/hr .Q1H1M ALTON Administration Magnesium Sulfate 2 gm/ Sodium 104 mls @ 100 mls/hr 09/11/20 21:52 09/11/20 22:05 Chloride IV 09/11/20 22:54 Not Given ONCE ONE Discontinued Medications Generic Name Dose Route Start Last Admin Trade Name Freq PRN Reason Stop Dose Admin Dexamethasone Sodium Phosphate 8 mg 09/11/20 21:52 09/11/20 22:05 Dexamethasone 4mg/Ml 1ml Vial IV 09/11/20 21:53 Not Given ONCE ONE Dexamethasone Sodium Phosphate 10 mg 09/11/20 22:04 09/11/20 22:07 Dexamethasone 4mg/Ml 5ml Mdv IV 09/11/20 22:05 10 mg ONCE ONE Administration Diphenhydramine HCl 25 mg 09/11/20 20:09 09/11/20 20:23 Diphenhydramine 50mg/Ml Vial IV 09/11/20 20:10 25 mg ONCE ONE Administration Ketorolac Tromethamine 30 mg 09/11/20 20:11 Ketorolac 30mg/Ml Vial IV 09/11/20 20:12 ONCE ONE Ketorolac Tromethamine 30 mg 09/11/20 21:11 09/11/20 21:20 Ketorolac 30mg/Ml Vial IV 09/11/20 21:12 30 mg ONCE ONE Administration Ondansetron HCl 4 mg 09/11/20 20:09 09/11/20 21:21 Ondansetron 4mg Odt SL 09/11/20 20:10 Not Given ONCE ONE Ondansetron HCl 4 mg 09/11/20 21:20 09/11/20 21:21 Ondansetron 4mg/2ml Vial IV 09/11/20 21:21 4 mg ONCE ONE Administration Prochlorperazine Edisylate 10 mg 09/11/20 20:09 09/11/20 20:24 Prochlorperazine 10mg/2ml Vial IV 09/11/20 20:10 10 mg ONCE ONE Administration Medical Decision Narrative: The patient is a 30-year-old female who presents to the emergency department with headache. Differential diagnosis includes subarachnoid hemorrhage, migraine, tension headache, meningitis. The patient has no red flag symptoms. Her headache was not sudden in onset and she has no associated fevers, changes in mental status, meningismus. A complete neuro exam is unremarkable. However because the patient does report this is unlike any headache she has had before is very severe eating it over a 11/24, CT head was obtained. Patient was given IV fluids, Benadryl, and Compazine. On reassessment she stated her headache had improved from a 10 out of 10 to a [address] head was unremarkable. She was given Toradol and Decadron. Shortly after being given these medications the patient requested to leave. She stated her heada
[2020-09-11 22:33] VITALS: BP 145/70; PULSE 73; RESP 17; TEMP 36.8; O2SAT 98
== END 2020-09-11 22:40 | disposition home or self-care (01) ==
PROVIDERS: Emergency Provider Emergency Medicine; PCP Emergency Medicine
DX: G43.009 Migraine without aura, not intractable, without status migrainosus (principal); J45.909 Unspecified asthma, uncomplicated; K21.9 Gastro-esophageal reflux disease without esophagitis; F19.11 Other psychoactive substance abuse, in remission; F17.210 Nicotine dependence, cigarettes, uncomplicated
CPT/HCPCS: 70450; 96365; 96375; 99283; J2405

== ENCOUNTER → 2020-09-30 11:52 | Outpatient (CLI) | payer MEDICAID, SELFPAY ==
[2020-09-30 14:22] LABS: Strep Scrn Group A (Rapid) Negative (Negative)
== END ==
PROVIDERS: PCP Physician Assistant; Visit Provider Nurse Practitioner
DX: Z20.822 Contact with and (suspected) exposure to COVID-19 (principal); J02.9 Acute pharyngitis, unspecified
CPT/HCPCS: 87430; U0003

== ENCOUNTER 2020-10-07 12:11 | Emergency (ER) | payer MEDICAID, SELFPAY ==
[2020-10-07 13:31] VITALS: BMI 19.6
[2020-10-07 13:59] VITALS: BP 0/0; PULSE 72; RESP 16; TEMP 37; O2SAT 98
--- NOTE | 2020-10-07 13:59 | HMH.EDUTC ---
[facility] [place] Disposition Clinical Impression: Strep throat, Exposure to COVID-19 virus Disposition: Home, Self-Care Condition on Discharge: Good Instructions: Strep Throat, DI for Strep Throat, DI for COVID-19 (Suspected or Confirmed ), Preventing the Spread of Coronavirus Discharge Instructions Additional Instructions: Drink plenty of fluids. Take tylenol or ibuprofen for pain or fever. Take the medications as directed. Follow up with your regular doctor. GO TO THE ER FOR ANY WORSENING SYMPTOMS Throw your tooth brush away and get a new one. Quarantine until you know the results of your covid-19 test. If it is positive, the health department should call you and give you further instructions about your length of Quarantine and other thing. Prescriptions: Cefdinir [Omnicef 300mg Capsule] 300 mg PO BID #20 cap Transmission Status: Received by [facility] predniSONE [Prednisone 20mg Tab] 20 mg PO BID 4 Days #8 tab Transmission Status: Received by [facility] Benzonatate [Tessalon Perle 100mg Cap] 100 mg PO TIDP PRN #30 cap PRN Reason: Cough Transmission Status: Received by [facility] Referrals: Jamir Styles MD [Primary Care Provider] - Forms: Work/School Release Time of Disposition: 14:03 Medical Decision Making - Medical Records Medical records reviewed: No: I reviewed the patient's medical records. - Leonardo Inquiry Pt receiving controlled substance: No Vital Signs: 10/07/20 13:59 Temperature 98.6 F Temperature Source Oral Pulse Rate 72 Respiratory Rate 16 Blood Pressure 0/0 L Oxygen Delivery Method Room Air - Lab Data Lab results reviewed: Yes: I reviewed the patient's lab results. [facility] HPI - General Stated complaint: fever, headache, soa, congestion Time Seen by Provider: 10/07/20 13:59 - History of Present Illness Provider Complaint: She c/o sore throat, cough and feeling bad for the past 2 days. - Related Data Home Medications Medication Instructions Recorded Confirmed buprenorphine 8 mg-naloxone 2 mg 1 tab SUBLINGUAL DAILY 09/06/20 09/30/20 sublingual tablet Gabapentin 800 mg PO QID 09/11/20 09/30/20 Previous Rx's Medication Instructions Recorded albuterol sulfate 90 mcg/actuation 2 puff INHALATION Q6H #6.7 g 10/03/20 aerosol inhaler azithromycin 250 mg tablet See Rx Instructions PO .COMPLEX #6 10/03/20 tab prednisone 20 mg tablet 20 mg PO BID #10 tab 10/03/20 Benzonatate [Tessalon Perle 100mg 100 mg PO TIDP PRN #30 cap 10/07/20 Cap] Cefdinir [Omnicef 300mg Capsule] 300 mg PO BID #20 cap 10/07/20 predniSONE [Prednisone 20mg 20 mg PO BID 4 Days #8 tab 10/07/20 Tab] Allergies Allergy/AdvReac Type Severity Reaction Status Date / Time acetaminophen Allergy Unknown Verified 09/30/20 11:09 [From TYLENOL-CODEINE #3] amoxicillin [AMOXICILLIN] Allergy Unknown Verified 09/30/20 11:09 codeine Allergy Unknown Verified 09/30/20 11:09 [From TYLENOL-CODEINE #3] Penicillins [PENICILLINS] Allergy Unknown Verified 09/30/20 11:09 latex Allergy Verified 09/30/20 11:09 tramadol [From Ultram] Allergy Verified 09/30/20 11:09 [facility] History - Hepatitis A Screen Attestation statement:: This patient has been screened for Hepatitis A risk factors. I have reviewed the patient's past medical history: Yes Medical History: Reports:: Asthma, Gastroesophageal Reflux Disease(GERD) Denies:: Cancer, Diabetes Mellitus Type 1, Diabetes Mellitus Type 2, MRSA Other Surgeries: Yes: Appendectomy, Amputation: No Fractures: No Comment: 2003-fatty cyst removed. 2005-fatty cytst removed. 2013-D&E X 2. 11/28-R. Paul, [employer]. 11/28/13-*C/S - Social History Smoking Status: Current every day smoker Tobacco Type: cigarettes # Packs/Day (cigarettes): 1 Alcohol Intake: never Substance Use Type: former substance user, opiates Occupational Status: other Housing: house Household
[2020-10-09 09:39] LABS: UTC Strep Screen (Rapid) Positive (Negative)
== END 2020-10-07 14:05 | disposition home or self-care (01) ==
PROVIDERS: Emergency Provider Nurse Practitioner Family; PCP Emergency Medicine
DX: J02.0 Streptococcal pharyngitis (principal); Z20.822 Contact with and (suspected) exposure to COVID-19
CPT/HCPCS: 87880; 99202; G0463; U0003

== ENCOUNTER → 2021-03-25 16:00 | Outpatient (CLI) | payer MEDICAID, SELFPAY ==
[2021-03-25 22:02] LABS: Basophils % 0.6 % (0.1-2.0); Eosinophils % 0.4 % (0.1-12.0); Hematocrit 46.5 % (37.0-47.0); Hemoglobin 14.3 g/dL (12.2-16.2); Lymphocytes # 1.3 K/mm3 (0.7-4.5); Mean Corpuscular HGB Conc 30.8 g/dL (31.8-35.4); Mean Corpuscular Hemoglobin 29.7 pg (27.0-31.2); Mean Corpuscular Volume 96.5 fl (81-99); Mean Platelet Volume 10.6 fl (7.4-10.4); Monocytes # 0.2 K/mm3 (0.1-1.0); Monocytes % 3.1 % (1.7-9.3); Neutrophils # 5.8 K/mm3 (1.8-7.8); Neutrophils % 77.9 % (37.0-80.0); Platelet Count 235 K/mm3 (142-424); Red Blood Count 4.82 M/mm3 (4.20-5.40); Red Cell Distribution Width 12.8 % (11.5-17.5); White Blood Count 7.4 K/mm3 (4.8-10.8)
[2021-03-25 22:24] LABS: Alanine Aminotransferase 12 U/L (12-78); Albumin Level 4.6 g/dl (3.5-5.0); Albumin/Globulin Ratio 1.7 (1.1-1.8); Alkaline Phosphatase 79 U/L (38-126); Anion Gap 13.7 mEq/L (5-15); Aspartate Amino Transferase 23 U/L (14-36); Bilirubin,Total 0.6 mg/dl (0.2-1.3); Blood Urea Nitrogen 18 mg/dl (7-17); Calcium 10.1 mg/dl (8.4-10.2); Carbon Dioxide 28 mmol/L (22.0-30.0); Chloride 105 mmol/L (98-107); Chol/HDL Ratio 2.6 (1-3.5); Cholesterol 139 mg/dl (140-200); Estimated Glomerular Filt Rate 98 ml/min (>60); GFR (African American) 119 ML/MIN (>60); Globulin 2.7 g/dL (1.3-3.2); Glucose 101 mg/dl (74-100); HDL Cholesterol 54 mg/dl (40-60); Potassium 4.7 mmoL/L (3.5-5.1); Sodium 142 mmol/L (136-145); Total Protein,Serum 7.3 g/dl (6.3-8.2); Triglycerides 37 mg/dl (30-150); VLDL Cholesterol 7 mg/dL (0-40)
[2021-03-25 22:35] LABS: Direct LDL Cholesterol 81.07 mg/dL (100-129)
[2021-03-25 22:40] LABS: 25-OH Vitamin D, Total 25.9 ng/mL (30-100); Free T4 (Free Thyroxine) 1.66 ng/dl (0.78-2.19)
[2021-03-25 22:53] LABS: Thyroid Stimulating Hormone 1.84 uIU/mL (0.465-4.68)
== END ==
PROVIDERS: Visit Provider Emergency Medicine
DX: R10.9 Unspecified abdominal pain (principal); E55.9 Vitamin D deficiency, unspecified
CPT/HCPCS: 80053; 80061; 82306; 84439; 84443; 85025

== ENCOUNTER → 2021-10-02 06:20 | Outpatient (CLI) | payer MEDICAID, SELFPAY | PROVIDERS: PCP Emergency Medicine; Visit Provider Internal Medicine Adolescent Medicine | DX: Z20.822 Contact with and (suspected) exposure to COVID-19 (principal); R50.9 Fever, unspecified | CPT/HCPCS: C9803; U0003; U0005 ==

== ENCOUNTER → 2022-10-02 23:59 | Outpatient (CLI) | payer MEDICAID, SELFPAY ==
[2022-10-02 19:55] LABS: T4 (Thyroxine) 11.8 ug/dl (5.53-11.0)
[2022-10-02 20:08] LABS: Thyroid Stimulating Hormone 3.85 uIU/mL (0.465-4.68)
[2022-10-02 20:28] LABS: Vitamin B12 514 pg/mL (239-931)
== END ==
PROVIDERS: PCP Emergency Medicine; Visit Provider Emergency Medicine
DX: E05.90 Thyrotoxicosis, unspecified without thyrotoxic crisis or storm (principal)
CPT/HCPCS: 82607; 84436; 84443

== ENCOUNTER → 2023-01-04 16:08 | Outpatient (CLI) | payer MEDICAID, SELFPAY ==
[2023-01-04 17:02] LABS: Amphetamine/Metha Screen,Urine Negative ng/ml (<1000)
[2023-01-04 17:03] LABS: Barbiturates Screen,Urine Negative ng/ml (<200); Benzodiazepines Screen,Urine Negative ng/ml (<200)
[2023-01-04 17:04] LABS: Cannabinoid Screen,Urine Negative ng/ml (<50)
[2023-01-04 17:05] LABS: Methadone Screen,Urine Negative ng/ml (<300)
[2023-01-04 17:06] LABS: Opiate Screen,Urine Negative ng/ml (<300); Phencyclidine Screen,Urine Negative ng/ml (<25)
[2023-01-04 17:15] LABS: Cocaine Screen,Urine Negative ng/ml (<300)
== END ==
PROVIDERS: PCP Emergency Medicine; Visit Provider Emergency Medicine
DX: Z79.899 Other long term (current) drug therapy (principal)
CPT/HCPCS: 80305

== ENCOUNTER 2023-04-28 21:08 | Outpatient (CLI) | payer MEDICAID, SELFPAY | END 2023-04-28 23:59 | LOC: LAB.DROPOF 21:08 | PROVIDERS: PCP Nurse Practitioner Family; Visit Provider Nurse Practitioner Family | DX: R05.9 Cough, unspecified (principal); U07.1 COVID-19 | CPT/HCPCS: 87635 ==

== ENCOUNTER 2023-05-09 02:05 | Emergency (ER) | payer MEDICAID, SELFPAY ==
[2023-05-09 02:24] VITALS: BP 143/105; PULSE 82; RESP 20; TEMP 36.8; O2SAT 98; BMI 19.8
--- NOTE | 2023-05-09 02:24 | XR_ITS ---
PROCEDURE INFORMATION: Exam: XR Soft Tissue Neck Exam date and time: 05/09/2023 2:27 AM Age: 32 years old Clinical indication: Other: Globus sensation TECHNIQUE: Imaging protocol: Radiologic exam of the soft tissues of the neck. COMPARISON: No relevant prior studies available. FINDINGS: Airway: Unremarkable. No abnormal narrowing. Soft tissues: Unremarkable. Normal epiglottis. Bones/joints: No acute fracture. IMPRESSION: No acute findings.
--- NOTE | 2023-05-09 02:26 | ED_ITS ---
Discharge Plan Disposition Patient Disposition: Home, Self-Care Condition: Good Prescriptions Prescriptions: No Action albuterol sulfate [Proventil HFA] 90 mcg/actuation HFA aerosol inhaler 2 puff INHALATION Q8H Qty: 8.5 0RF budesonide-formoterol [Symbicort] 80-4.5 mcg/actuation HFA aerosol inhaler 1 inh inhalation BID Qty: 10.2 2RF esomeprazole magnesium 40 mg capsule,delayed release(DR/EC) See Rx Instructions .ROUTE .COMPLEX Qty: 90 3RF Dose Instruction: TAKE 1 CAPSULE 1 TIME EACH DAY Rx Instructions: TAKE 1 CAPSULE 1 TIME EACH DAY buprenorphine-naloxone 8-2 mg tablet, sublingual 1 tab SUBLINGUAL DAILY gabapentin 800 mg tablet 800 mg PO TID Qty: 90 2RF Referrals Follow up/Referrals: Hailee Morales APRN [Staff Physician] - See instructions (globus sensation) Provider,Referral, [Primary Care Provider] - See instructions Activity Restrictions/Add. Instructions Additional Instructions/Restrictions: You were evaluated in the ER. You are appropriate for discharge at this time. Follow-up with GI, they will contact you for an appointment. Make an appointment with your primary care physician for reevaluation on Wednesday or Wednesday, return to the ER with new, worsening, or otherwise concerning symptoms. Clinical Impressions Clinical Impression: Globus sensation Discharge ED Provider: Katerina Blanchard Adult HPI General Chief complaint: PAIN Stated complaint: swollen and sore throat Time Seen by Provider: 05/09/23 02:12 History of Present Illness HPI narrative: 32-year-old female with a history of nerve pain, reflux presents to the ER with concerns of sensation of something being stuck in her throat. Patient states night she ate lasagna and went to bed feeling normal, on Wednesday morning she woke up with this sensation in her throat. Patient states she has been able to eat and drink since that time, but when she belches after drinking pop foamy stuff comes up . She has been able to drink water. She states she ate solids yesterday and had discomfort but everything was able to pass. She denies eating anything with small bones such as fish. Patient states she is also starting to get a mild headache. There is family history of colon cancer, lymph cancer . Patient denies fevers, abdominal pain, shortness of breath, chest pain, dizziness, she thought she was losing weight but my review of her for most recent family medicine encounters dating back to September 2022 demonstrates weight maintaining between 140-150 pounds. Related Data Home Medications Medication Instructions Recorded Confirmed buprenorphine 8 mg-naloxone 2 mg 1 tab sublingual DAILY SUBSTANCE 09/06/20 05/09/23 sublingual tablet ABUSE Previous Rx's Medication Instructions Recorded albuterol sulfate 90 mcg/actuation 2 puff inhalation Q8H Asthma #8.5 01/04/23 aerosol inhaler (Proventil HFA) grams budesonide-formoterol HFA 80 1 inh inhalation BID #10.2 grams 01/04/23 mcg-4.5 mcg/actuation aerosol inhaler (Symbicort) esomeprazole magnesium 40 mg See Rx Instructions .Route 01/04/23 capsule,delayed release .COMPLEX #90 caps gabapentin 800 mg tablet 800 mg PO TID PERIPHEAL NEUROPATHY 03/30/23 #90 tabs Allergies Allergy/AdvReac Type Severity Reaction Status Date / Time acetaminophen Allergy Unknown Verified 05/09/23 02:35 [From TYLENOL-CODEINE #3] amoxicillin [AMOXICILLIN] Allergy Unknown Verified 05/09/23 02:35 codeine Allergy Unknown Verified 05/09/23 02:35 [From TYLENOL-CODEINE #3] Penicillins [PENICILLINS] Allergy Unknown Verified 05/09/23 02:35 latex Allergy Verified 05/09/23 02:35 tramadol [From Ultram] Allergy Verified 05/09/23 02:35 PFSH PFSH Disclaimer: The information contained in this section may have been updated after the patient was seen, as this information can be updated by other users. 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 Hx of gastroesophageal reflux (GERD) History of asthma Surgical History Hx of dilation and curettage Hx of unilateral salpingectomy right Hx of nevus excision History of section History of appendectomy Family History Father Colon cancer Other Family history of diabetes mellitus type II Family history of myocardial infarction Social History Smoking Status: Current every day smoker tobacco type: cigarettes packs per day: 1 years smoked: 16 second hand exposure: No alcohol intake: never substance use type: former substance user and opiates current occupational status: other Travel in the last 8 weeks: None household members: family housing: apartment lives independently: Yes marital status: single education level: high school special michelle needs: No agree to transfusion: No do you feel safe at home: Yes victim of physical abuse: No victim of emotional abuse: No victim of sexual abuse: No would you like helpful sources: No ROS Obtained: Yes All systems reviewed & no additional complaints except as documented Constitutional Constitutional: Denies chills, Denies fever(s), Denies headache(s) and Denies weakness Eyes Eyes: Denies change in vision ENT Ears, Nose, Mouth, and Throat: Denies dizziness, Denies headache(s), Denies nasal congestion, Reports odynophagia (Globus sensation) and Denies sore throat Cardiovascular Cardiovascular: Denies chest pain, Denies dyspnea and Denies leg edema Respiratory Respiratory: Denies cough and Denies dyspnea Gastrointestinal Gastrointestingal: Reports odynophagia (Globus sensation); Denies constipation, diarrhea, nausea or vomiting Genitourinary Female Genitourinary: Denies dysuria Musculoskeletal Musculoskeletal: Denies arthralgias, Denies myalgias, Denies numbness and Denies tingling Integumentary/Breasts Skin/Breast: Denies change in pigmentation Neurologic Neurologic: Denies dizziness, Denies headache(s), Denies numbness, Denies tingling and Denies weakness Physical Exam General General appearance: alert and in no apparent distress Head Head exam: atraumatic and normocephalic Eye Eye exam: Present PERRL and EOMI ENT ENT exam: Present mucous membranes moist Neck Neck exam: Present normal inspection, full ROM and trachea midline; Absent tenderness (Palpation over the area of discomfort does not identify any mass or tenderness, patient identifies the area inferior to her cricoid cartilage as the area with discomfort but it is not reproducible with palpation), lymphadenopathy or thyromegaly Chest Chest inspection: Present symmetric chest wall rise Respiratory Respiratory exam: Absent respiratory distress or stridor Cardiovascular Cardiovascular exam: Present regular rate and normal rhythm Abdominal Exam Abdominal exam: Present soft; Absent distention or tenderness Extremities Exam Extremities exam: Present full ROM Neurological Exam Neurological exam: Present alert and oriented X3; Absent motor sensory deficit Psychiatric Psychiatric exam: Present normal affect and normal mood Skin Skin exam: Present warm and dry Medical Decision Making Medical Records Medical records reviewed: Yes I reviewed the patient's medical records. MR Comment: Stable weight Leonardo Inquiry Pt receiving controlled substance: No Vital Signs: 05/09/23 02:24 Temperature 98.3 F Temperature Source Oral Pulse Rate [Right Brachial] 82 Respiratory Rate 20 Blood Pressure [Right Arm] 143/105 H Blood Pressure Mean [Right Arm] 117 Blood Pressure Source [Right Arm] Automatic Cuff Blood Pressure Position [Right Arm] Sitting 02 Sat by Pulse Oximetry 98 Oxygen Delivery Method Room Air Lab Data Lab Results 05/09/23 02:50: WBC 9.0, RBC 4.93, Hgb 15.0, Hct 47.4 H, MCV 96.2, MCH 30.5, M CHC 31.7 L, RDW 12.8, Plt Count 200, MPV 9.8, Neut % (Auto) 69.1, Lymph % (Auto) 27.4, [place] % (Auto) 2.4, Eos % (Auto) 0.2, Baso % (Auto) 0.8, Neut # (Auto) 6.2, Lymph # (Auto) 2.5, [place] # (Auto) 0.2, Eos # (Auto) 0.0, Baso # (Auto) 0.1, Sodium 141, Potassium 3.3 L, Chloride 103, Carbon Dioxide 33 H, Anion Gap 8.3, BUN 13, Creatinine 0.80, Estimated Creat Clear 103, Estimated GFR 83, Est GFR ( Amer) 101, Glucose 89, Calcium 10.2, Total Bilirubin 0.8, AST 32, ALT 21, Alkaline Phosphatase 62, Total Protein 8.1, Albumin 5.1 H, Globulin 3.0, Albumin/Globulin Ratio 1.7, TSH 2.38, Free T4 1.52 05/09/23 02:50 05/09/23 02:50 Orders (Tests/Meds): ED MEDICATIONS Discontinued Medications Generic Name Dose Route Start Last Admin Trade Name Freq PRN Reason Stop Dose Admin Belladonna Alkaloids 60 ml 05/09/23 02:24 05/09/23 02:56 Belladonna Alkaloids 60 Ml Ml PO 05/09/23 02:25 60 ml ONCE ONE Administration ORDERS Category Date Time Status Neck soft tissue XR [XR soft tissue neck] Stat Exams 05/09/23 02:24 Completed CBC w/Auto Diff [Complete Blood Count Auto Diff] Stat Lab 05/09/23 02:50 Completed CMP [Comprehensive Metabolic Panel] Stat Lab 05/09/23 02:50 Completed Free T4 (Free Thyroxine) Stat Lab 05/09/23 02:50 Completed TSH [Thyroid Stimulating Hormone] Stat Lab 05/09/23 02:50 Completed Medical Decision Narrative: In summary, this 32year old female presents to the emergency department today with a sensation of something stuck in the throat. On initial evaluation patient is hemodynamically stable, afebrile, protecting her airway, tolerating secretions, patient drank water in front of me in the ER successfully. She has no stridor, no masses, no anatomic deviation or abnormality, no lymphadenopathy on palpation and examination of the neck. Remainder of exam benign. Oropharynx clear. I considered food bolus on my differential but have extremely low suspicion for this given patient has been able to tolerate both solids and liquids since onset of her symptoms, I considered lymphadenopathy or thyromegaly but do not appreciate these on exam, I considered small foreign body such as fishbone but history is not consistent with this, I also considered other soft tissue swelling, esophageal spasm, and PATTERNMAKER SAMPLE, RPA, strep. I have extremely low suspicion for strep or peritonsillar abscess based on posterior oropharyngeal exam which did not demonstrate any erythema or swelling, no exudate. I also have extremely low suspicion for retropharyngeal abscess since patient does not have any muffled voice, neck pain, fevers. Basic labs have been ordered to assess blood counts given patient's family history of lymph cancer . I also ordered thyroid studies and soft tissue x-ray of the neck. Patient received GI cocktail. Labs personally reviewed demonstrate no leukocytosis, no anemia, normal cell lines, nonactionable electrolytes, BUN and creatinine normal, normal LFTs, TSH 2.38, free T4 1.52, normal. XR personally interpreted demonstrates no airway deviation, no obvious anatomic abnormalities, retropharyngeal space normal, epiglottis normal. See radiology read for final interpretation. On reassessment, patient's symptoms are stable. She has continued to tolerate oral intake in the ER. She has not had any change in her symptoms, no worsening. She is appropriate for discharge. I provided referral to GI for outpatient follow-up. Patient is amenable to this plan. Patient was given instructions on symptomatic management, follow up instructions, and return precautions for the emergency department. Patient indicated understanding and was discharged in stable condition. Critical Care Critical Care Time Critical Care Time: No
[2023-05-09] MEDS: BELLADONNA ALKALOIDS 60 ML ML PO (02:56)
[2023-05-09 03:00] LABS: Basophils # 0.1 K/mm3 (0-0.2); Basophils % 0.8 % (0.1-2.0); Eosinophils % 0.2 % (0.1-12.0); Hematocrit 47.4 % (37.0-47.0); Lymphocytes # 2.5 K/mm3 (0.7-4.5); Lymphocytes % 27.4 % (10-50); Mean Corpuscular HGB Conc 31.7 g/dL (31.8-35.4); Mean Corpuscular Hemoglobin 30.5 pg (27.0-31.2); Mean Corpuscular Volume 96.2 fl (81-99); Mean Platelet Volume 9.8 fl (7.4-10.4); Monocytes # 0.2 K/mm3 (0.1-1.0); Monocytes % 2.4 % (1.7-9.3); Neutrophils # 6.2 K/mm3 (1.8-7.8); Neutrophils % 69.1 % (37.0-80.0); Platelet Count 200 K/mm3 (142-424); Red Blood Count 4.93 M/mm3 (4.20-5.40); Red Cell Distribution Width 12.8 % (11.5-17.5)
[2023-05-09 03:02] LABS: Chloride 103 mmol/L (98-107); Potassium 3.3 mmoL/L (3.5-5.1); Sodium 141 mmol/L (136-145)
[2023-05-09 03:04] LABS: Alanine Aminotransferase 21 U/L (12-78); Aspartate Amino Transferase 32 U/L (14-36); Blood Urea Nitrogen 13 mg/dl (7-17); Creatinine Clearance Estimated 103 mL/min (50-200); Estimated Glomerular Filt Rate 83 ml/min (>60); GFR (African American) 101 ML/MIN (>60)
[2023-05-09 03:05] LABS: Albumin Level 5.1 g/dl (3.5-5.0); Albumin/Globulin Ratio 1.7 (1.1-1.8); Alkaline Phosphatase 62 U/L (38-126); Anion Gap 8.3 mEq/L (5-15); Bilirubin,Total 0.8 mg/dl (0.2-1.3); Calcium 10.2 mg/dl (8.4-10.2); Carbon Dioxide 33 mmol/L (22.0-30.0); Glucose 89 mg/dl (74-100); Total Protein,Serum 8.1 g/dl (6.3-8.2)
--- NOTE | 2023-05-09 03:24 | PC.NURSE ---
Rounded on pt at this time. Pt voices no needs.
[2023-05-09 03:26] LABS: Free T4 (Free Thyroxine) 1.52 ng/dl (0.78-2.19)
[2023-05-09 03:36] LABS: Thyroid Stimulating Hormone 2.38 uIU/mL (0.465-4.68)
[2023-05-09 03:54] VITALS: BP 124/91; PULSE 72; RESP 15; TEMP 36.7; O2SAT 98
== END 2023-05-09 03:57 | disposition home or self-care (01) ==
PROVIDERS: Emergency Provider Emergency Medicine
DX: R09.A2 Foreign body sensation, throat (principal); F17.210 Nicotine dependence, cigarettes, uncomplicated
CPT/HCPCS: 70360; 80053; 84439; 84443; 85025; 99283

== ENCOUNTER 2024-01-15 23:33 | Emergency (ER) | payer MEDICAID, SELFPAY ==
[2024-01-15 23:37] VITALS: BP 157/99; PULSE 95; RESP 16; TEMP 36.7; O2SAT 98; BMI 17.4
--- NOTE | 2024-01-15 23:39 | CT_ITS ---
PROCEDURE INFORMATION: Exam: CT Abdomen And Pelvis Without Contrast Exam date and time: 01/16/2024 12:24 AM Age: 33 years old Clinical indication: Abdominal pain; Additional info: R flank pain radiating to groin TECHNIQUE: Imaging protocol: Computed tomography of the abdomen and pelvis without contrast. Radiation optimization: All CT scans at this facility use at least one of these dose optimization techniques: automated exposure control; mA and/or kV adjustment per patient size (includes targeted exams where dose is matched to clinical indication); or iterative reconstruction. COMPARISON: CT ABDOMEN PELVIS W CON 03/08/2020 9:46 PM FINDINGS: Lungs: Lung bases are clear. Liver: Normal. No mass. Gallbladder and biliary ducts: Normal. No calcified stones. No ductal dilation. Pancreas: Normal. No ductal dilation. Spleen: Normal. No splenomegaly. Adrenal glands: Normal. No mass. Kidneys and ureters: Normal. No hydronephrosis. Stomach and bowel: Unremarkable. No obstruction. No mucosal thickening. Appendix: No evidence of appendicitis. Intraperitoneal space: Unremarkable. No free air. No significant fluid collection. Vasculature: Unremarkable. No abdominal aortic aneurysm. Lymph nodes: Unremarkable. No enlarged lymph nodes. Urinary bladder: Unremarkable as visualized. Reproductive: Unremarkable as visualized. Bones/joints: Unremarkable. No acute fracture. Soft tissues: Unremarkable. IMPRESSION: No acute findings. Sensitivity for intra-abdominal pathology may be limited in this patient due to lack of contrast combined with paucity of intra-abdominal fat.
[2024-01-15] MEDS: ACETAMINOPHEN 1,000MG/100ML VIAL 1000 MG IV (23:54)
[2024-01-15] MEDS: ONDANSETRON 4MG/2ML VIAL 4 MG IV (23:54)
[2024-01-15 23:57] LABS: Appearance,Urine CLEAR (Clear); Bilirubin,Urine Negative (Negative); Blood, Urine Negative (Negative); Color,Urine YELLOW (Yellow); Glucose,Urine (UA) Negative (Negative); Ketones,Urine Negative (Negative); Leukocyte Esterase,Urine Negative (Negative); Microscopic, Urine URINE MICROSCOPIC (MICROSCOPIC); Nitrate,Urine Negative (Negative); Protein,Urine Negative (Negative); Urobilinogen,Urine 0.2 EU/dl (0.2)
[2024-01-15 23:58] LABS: Basophils # 0.1 K/mm3 (0-0.2); Basophils % 1.4 % (0.1-2.0); Eosinophils # 0.1 K/mm3 (0.0-0.4); Eosinophils % 0.7 % (0.1-12.0); Hematocrit 45.6 % (37.0-47.0); Hemoglobin 15.5 g/dL (12.2-16.2); Lymphocytes # 2.2 K/mm3 (0.7-4.5); Lymphocytes % 26.5 % (10-50); Mean Corpuscular Hemoglobin 30.6 pg (27.0-31.2); Mean Platelet Volume 9.6 fl (7.4-10.4); Monocytes # 0.3 K/mm3 (0.1-1.0); Monocytes % 3.2 % (1.7-9.3); Neutrophils # 5.6 K/mm3 (1.8-7.8); Neutrophils % 68.2 % (37.0-80.0); Platelet Count 194 K/mm3 (142-424); Red Blood Count 5.07 M/mm3 (4.20-5.40); White Blood Count 8.2 K/mm3 (4.8-10.8)
[2024-01-16] VITALS: BP 138/91; PULSE 93; O2SAT 98
[2024-01-16 00:13] LABS: Alanine Aminotransferase 17 U/L (12-78); Albumin/Globulin Ratio 1.7 (1.1-1.8); Alkaline Phosphatase 68 U/L (38-126); Anion Gap 13.2 mEq/L (5-15); Aspartate Amino Transferase 34 U/L (14-36); Bilirubin,Total 0.9 mg/dl (0.2-1.3); Blood Urea Nitrogen 13 mg/dl (7-17); Calcium 9.8 mg/dl (8.4-10.2); Carbon Dioxide 27 mmol/L (22.0-30.0); Chloride 106 mmol/L (98-107); Creatinine Clearance Estimated 90 mL/min (50-200); Estimated Glomerular Filt Rate 83 ml/min (>60); GFR (African American) 100 ML/MIN (>60); Globulin 2.9 g/dL (1.3-3.2); Glucose 92 mg/dl (74-100); Potassium 4.2 mmoL/L (3.5-5.1); Sodium 142 mmol/L (136-145); Total Protein,Serum 7.9 g/dl (6.3-8.2)
--- NOTE | 2024-01-16 00:13 | HMH.EDGENADL ---
Discharge Plan Disposition Patient Disposition: Home, Self-Care Condition: Good Prescriptions Prescriptions: No Action Vraylar 1.5 mg capsule 1.5 mg PO DAILY Qty: 30 3RF hydroxyzine pamoate [Vistaril] 25 mg capsule 25 mg PO TID PRN (Reason: itching) Qty: 60 0RF esomeprazole magnesium 40 mg capsule,delayed release(DR/EC) See Rx Instructions .ROUTE .COMPLEX Qty: 90 3RF Dose Instruction: TAKE 1 CAPSULE 1 TIME EACH DAY Rx Instructions: TAKE 1 CAPSULE 1 TIME EACH DAY gabapentin 800 mg tablet 800 mg PO TID Qty: 90 2RF budesonide-formoterol [Symbicort] 80-4.5 mcg/actuation HFA aerosol inhaler 1 inh inhalation BID Qty: 10.2 2RF albuterol sulfate 90 mcg/actuation HFA aerosol inhaler 2 puff INHALATION Q8H Qty: 8.5 0RF buprenorphine-naloxone 8-2 mg tablet, sublingual 1 tab SUBLINGUAL DAILY Referrals Follow up/Referrals: Sergio Handy APRN [Primary Care Provider] - See instructions Activity Restrictions/Add. Instructions Additional Instructions/Restrictions: You were evaluated in the ER and are appropriate for discharge at this time. Take Tylenol, ibuprofen if needed for pain, do not exceed the recommended dose on the bottle. Drink water and eat a small snack each time you take these medications to avoid side effects. Please make an appointment with your primary care doctor for reevaluation in 2 to 3 days, return to the ER with any new, worsening, or otherwise concerning symptoms as discussed. Clinical Impressions Clinical Impression: Acute right flank pain, Abdominal pain, right lower quadrant Instructions Patient Instructions: DI for Acute Abdominal Pain Print Language Print Language: Amharic Discharge ED Provider: Katerina Blanchard General Adult HPI General Chief complaint: Abdominal Pain Stated complaint: back pain Time Seen by Provider: 01/15/24 23:39 Mode of Arrival: Family Vehicle Source of Information: Patient Limitations: No Limitations Description of Symptoms (Recalled from ER Triage Doc. by RN): Pt states she had sudden onset of right flank pain radiating into her pelvic region Associated with nausea History of Present Illness HPI narrative: 33-year-old female presents to the ER with complaints of sudden onset right back and flank pain radiating into her pelvic region associated with nausea but no vomiting or diarrhea. Patient reports that the pain came on all of a sudden at full strength, she has tried taking ibuprofen without relief. Pain has been going on for 4 to 6 hours. She denies dysuria or hematuria, patient reports no history of kidney stones. She reports she takes Suboxone and gabapentin daily, no other daily medications, she states she does not want any narcotic pain medications. Most recent menstrual period was 1 week ago. She denies fevers, chills, chest pain, headache, dizziness, numbness, tingling, weakness, cough, congestion, or other associated symptoms. Related Data Home Medications ?Medication ?Instructions ?Recorded ?Confirmed buprenorphine 8 mg-naloxone 2 mg 1 tab sublingual DAILY SUBSTANCE 09/06/20 12/28/23 sublingual tablet ABUSE Previous Rx's ?Medication ?Instructions ?Recorded cariprazine 1.5 mg capsule 1.5 mg PO DAILY #30 caps 10/05/23 (Vraylar) hydroxyzine pamoate 25 mg capsule 25 mg PO TID PRN itching #60 caps 10/05/23 (Vistaril) albuterol sulfate 90 mcg/actuation 2 puff inhalation Q8H Asthma #8.5 12/28/23 aerosol inhaler grams budesonide-formoterol HFA 80 1 inh inhalation BID #10.2 grams 12/28/23 mcg-4.5 mcg/actuation aerosol inhaler (Symbicort) esomeprazole magnesium 40 mg See Rx Instructions .Route 12/28/23 capsule,delayed release .COMPLEX #90 caps gabapentin 800 mg tablet 800 mg PO TID PERIPHEAL NEUROPATHY 12/28/23 #90 tabs Allergies Allergy/AdvReac Type Severity Reaction Status Date / Time acetaminophen (From Allergy Unknown Verified 12/28/23 14:29 TYLENOL-CODEINE #3) amoxicillin (AMOXICILLIN) Allergy Unknown Verified 12/28/23 14:29 codeine (From Allergy Unknown Verified 12/28/23 14:29 TYLENOL-CODEINE #3) Penicillins (PENICILLINS) Allergy Unknown Verified 12/28/23 14:29 latex Allergy Verified 12/28/23 14:29 tramadol (From Ultram) Allergy Verified 12/28/23 14:29 [facility] Disclaimer: The information contained in this section may have been updated after the patient was seen, as this information can be updated by other users. 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 Hx of gastroesophageal reflux (GERD) History of asthma Surgical History Hx of dilation and curettage Hx of unilateral salpingectomy right Hx of nevus excision History of section History of appendectomy Family History Father Colon cancer Other Family history of diabetes mellitus type II Family history of myocardial infarction Social History Smoking Status: Current every day smoker tobacco type: cigarettes packs per day: 1 years smoked: 16 second hand exposure: No alcohol intake: former year quit: 2009 substance use type: former substance user and opiates current occupational status: other household members: family housing: apartment lives independently: Yes marital status: single education level: high school special michelle needs: No agree to transfusion: No do you feel safe at home: Yes victim of physical abuse: No victim of emotional abuse: No victim of sexual abuse: No would you like helpful sources: No Other Medical History Have you received the Flu Vaccine for this season: No Have you received the Pneumonia Vaccine: No ROS Obtained: Yes Systems reviewed as appropriate & no additional complaints except as documented ROS per HPI Physical Exam General General appearance: alert Comment: Obviously in pain but nontoxic appearing Head Head exam: atraumatic and normocephalic Eye Eye exam: Present PERRL and EOMI ENT ENT exam: Present mucous membranes moist Neck Neck exam: Present normal inspection and full ROM Chest Chest inspection: Present symmetric chest wall rise Respiratory Respiratory exam: Present normal lung sounds bilaterally; Absent respiratory distress, wheezes or stridor Cardiovascular Cardiovascular exam: Present regular rate and normal rhythm Abdominal Exam Abdominal exam: Present soft; Absent distention, tenderness (Mild right lower quadrant tenderness), guarding or rebound Extremities Exam Extremities exam: Present full ROM Back Exam Back exam: Present CVA tenderness (R); Absent CVA tenderness (L) Neurological Exam Neurological exam: Present alert and oriented X3; Absent motor sensory deficit Psychiatric Psychiatric exam: Present normal affect and normal mood Skin Skin exam: Present warm and dry Medical Decision Making Medical Records Screening: Per USPSTF and CDC recommendations, given the prevalence of disease in our region, it is our hospital?s policy to screen for HIV and viral Hepatitis for all patients aged 18 and over and those with ongoing risk factors. Leonardo Inquiry Pt receiving controlled substance: No Vital Signs: 01/15/24 23:37 01/16/24 00:00 01/16/24 00:30 Temperature 98.0 F Temperature Source Oral Pulse Rate 93 H 80 Pulse Rate [Right Brachial] 95 H Respiratory Rate 16 Blood Pressure 138/91 H 132/83 Blood Pressure [Right Arm] 157/99 H Blood Pressure Mean 106 99 Blood Pressure Mean [Right Arm] 118 Blood Pressure Source Blood Pressure Source [Right Arm] Automatic Cuff Blood Pressure Position Blood Pressure Position [Right Arm] Sitting 02 Sat by Pulse Oximetry 98 98 95 Oxygen Delivery Method Room Air 01/16/24 01:58 01/16/24 02:06 Temperature 98.0 F Temperature Source Oral Pulse Rate 70 72 Pulse Rate [Right Brachial] Respiratory Rate 18 Blood Pressure 132/92 H 129/95 H Blood Pressure [Right Arm] Blood Pressure Mean Blood Pressure Mean [Right Arm] Blood Pressure Source Automatic Cuff Blood Pressure Source [Right Arm] Blood Pressure Position Sitting Blood Pressure Position [Right Arm] 02 Sat by Pulse Oximetry 99 Oxygen Delivery Method Room Air Lab Data Lab Results 01/15/24 23:50: WBC 8.2, RBC 5.07, Hgb 15.5, Hct 45.6, MCV 90.0, MCH 30.6, MCHC 34.0, RDW 13.0, Plt Count 194, MPV 9.6, Neut % (Auto) 68.2, Lymph % (Auto) 26.5, [place] % (Auto) 3.2, Eos % (Auto) 0.7, Baso % (Auto) 1.4, Neut # (Auto) 5.6, Lymph # (Auto) 2.2, [place] # (Auto) 0.3, Eos # (Auto) 0.1, Baso # (Auto) 0.1, Sodium 142, Potassium 4.2, Chloride 106, Carbon Dioxide 27, Anion Gap 13.2, BUN 13, Creatinine 0.80, Estimated Creat Clear 90, Estimated GFR 83, Est GFR ( Amer) 100, Glucose 92, Calcium 9.8, Total Bilirubin 0.9, AST 34, ALT 17, Alkaline Phosphatase 68, Total Protein 7.9, Albumin 5.0, Globulin 2.9, Albumin/Globulin Ratio 1.7, Serum HCG, Qual Negative, HIV 1&2 Antibody Rapid Nonreactive 01/15/24 23:53: Urine Color Yellow, Urine Appearance Clear, Urine pH 6.0, Ur Specific [place] 1.010, Urine Protein Negative, Urine Glucose (UA) Negative, Urine Ketones Negative, Urine Blood Negative, Urine Nitrate Negative, Urine Bilirubin Negative, Urine Urobilinogen 0.2, Ur Leukocyte Esterase Negative, Urine RBC None, Urine WBC Occasional, Ur Squamous Epith Cells 3-5, Urine Bacteria None 01/15/24 23:50 01/15/24 23:50 Orders (Tests/Meds): ED MEDICATIONS Discontinued Medications Generic Name Dose Route Start Last Admin Trade Name Winq PRN Reason Stop Dose Admin Acetaminophen 1,000 mg 01/15/24 23:39 01/15/24 23:54 Acetaminophen 1,000mg/100ml Vial IV 01/15/24 23:40 1,000 mg ONCE ONE Administration Ondansetron HCl 4 mg 01/15/24 23:42 01/15/24 23:54 Ondansetron 4mg/2ml Vial IV 01/15/24 23:43 4 mg ONCE ONE Administration ORDERS Category Date Time Status CT abdomen pelvis wo con Stat Cat Scan 01/15/24 23:39 Completed US transvaginal Stat Exams 01/16/24 01:02 Taken CBC w/Auto Diff [Complete Blood Count Auto Diff] Stat Lab 01/15/24 23:50 Completed CMP [Comprehensive Metabolic Panel] Stat Lab 01/15/24 23:50 Completed HCG Qualitative, Serum Stat Lab 01/15/24 23:50 Completed HIV (1&2) Antibody Rapid Stat Lab 01/15/24 23:50 Completed Hep C Ab with Reflex to RNA Stat Lab 01/15/24 23:50 Received Urinalysis and Microscopic Stat Lab 01/15/24 23:53 Completed Medical Decision Narrative: In summary, this 33-year-old female presents to the emergency department today with right flank pain radiating to the groin sudden onset. On initial evaluation patient is hemodynamically stable, afebrile, obviously in pain but nontoxic appearing, she has right CVA tenderness as well as mild right lower quadrant tenderness to palpation without peritonitis, no rebound or guarding. Differential diagnosis includes but is not limited to nephrolithiasis, ureterolithiasis, hydronephrosis, I considered urinary tract infection, pyelonephritis however patient does not have dysuria or hematuria and symptoms were sudden in onset without fever. I did also consider the possibility of kidney dysfunction, electrolyte abnormality, , appendicitis but again I have lower suspicion for appendicitis since patient does not have fever and had sudden onset of maximal pain in the flank, she also reports she has had an appendectomy. Based on these concerns, I ordered serum labs, CT imaging. Patient declined any narcotic medications so she received IV acetaminophen for treatment. Labs personally reviewed demonstrate no findings of UTI, Normal CBC, normal CMP, hCG negative CT abdomen pelvis personally interpreted demonstrates no ureterolithiasis or nephrolithiasis, no findings of hydronephrosis or hydroureter, I also do not appreciate obvious findings of appendicitis. Radiology read is in agreement. I reassessed the patient and she states her pain is somewhat improved but still appears uncomfortable. I had considered ovarian torsion early in the encounter but with her obvious CVA tenderness I had higher suspicion for urologic pathology. Since her UA is reassuring against infection or inflammatory changes, serum labs are reassuring against acute infection since patient does not have a white count and no concern for appendicitis since patient does not have her appendix, I now have higher suspicion for torsion in the setting of normal labs but patient still having significant right pain. I called the reading radiologist since patient is still having discomfort, I discussed this case and images with him. He stated it is difficult to thoroughly visualize the uterus and adnexa because of patient's lack of intraperitoneal fat, however he does not appreciate obvious large cyst. He recommended ultrasound if still concern for possible torsion. I agree with this, patient is amenable to this plan. Ultrasound has been paged for transvaginal ultrasound to rule out ovarian torsion. Patient does report that she lost her right fallopian tube when she had her son, however she still has the ovary. senior environmental technician reported there are findings to me after performing the transvaginal ultrasound. There was good flow to both ovaries reported though there were multiple small cysts in the right ovary. No findings of hemorrhagic cyst, no findings of torsion. On reassessment patient continues to be stable. She states her pain is tolerable and improved from when she arrived. Workup is reassuring and she is appropriate for discharge. Patient was given instructions on symptomatic management, follow up instructions, and return precautions for the emergency department. Patient indicated understanding and was discharged in stable condition. Critical Care Critical Care Time Critical Care Time: No
[2024-01-16 00:17] LABS: HCG Qualitative, Serum Negative (Negative)
--- NOTE | 2024-01-16 00:19 | PC.NURSE ---
Pt to CT scan via wheelchair
[2024-01-16 00:22] LABS: WBC,Urine Occasional #/hpf (0-3)
[2024-01-16 00:30] VITALS: BP 132/83; PULSE 80; O2SAT 95
--- NOTE | 2024-01-16 00:58 | PC.NURSE ---
US called in per MD request to rule out torsion.
--- NOTE | 2024-01-16 01:02 | US_ITS ---
PROCEDURE INFORMATION: Exam: US Duplex Artery and Vein of the Abdominal and/or Reproductive Organs. Complete Ovaries Exam date and time: 01/16/2024 1:26 AM Age: 33 years old Clinical indication: Pelvic pain; Additional info: R side pain, reassuring CT, rule out torsion TECHNIQUE: Imaging protocol: Real-time duplex ultrasound scan of the arterial and venous flow with color Doppler flow and spectral waveform analysis with image documentation. Duplex exam was performed to evaluate for torsion and other vascular conditions. Total images: 661 COMPARISON: CT ABDOMEN PELVIS WO CON 01/16/2024 12:24 AM FINDINGS: Right ovary/adnexa: Normal arterial and venous Doppler waveforms. No evidence of ovarian torsion. Left ovary/adnexa: Normal arterial and venous Doppler waveforms. No evidence of ovarian torsion. IMPRESSION: Normal ovarian arterial and venous vascular flow. No evidence ovarian torsion. PROCEDURE INFORMATION: Exam: US Pelvis, Transvaginal, Non-Obstetric Exam date and time: 01/16/2024 1:26 AM Age: 33 years old Clinical indication: Pelvic pain; Additional info: R side pain, reassuring CT, rule out torsion TECHNIQUE: Imaging protocol: Real-time transvaginal pelvic (non-obstetric) ultrasound with image documentation. Transvaginal imaging was used for better evaluation of the endometrium, adnexa, and/or cervix. COMPARISON: CT ABDOMEN PELVIS WO CON 01/16/2024 12:24 AM FINDINGS: Uterus: Anteverted uterus measuring 6.5 x 2.9 x 4.3 cm. No uterine mass. Homogeneous myometrium. Nonthickened endometrium at 5 mm. Right ovary/adnexa: Right ovary measuring 3.5 x 2.4 x 3.6 cm with volume of 15.4 cc. 2 cm hemorrhagic dominant right ovarian follicle. Additional subcentimeter ovarian follicles. Left ovary/adnexa: Left ovary measuring 3.4 x 2.9 x 2.0 cm with volume of 10.4 cc. Multiple subcentimeter functional follicles. Intraperitoneal space: No free pelvic fluid. No adnexal mass. IMPRESSION: 1. 2 cm hemorrhagic dominant right ovarian follicle. 2. Otherwise, unremarkable pelvic ultrasound.
--- NOTE | 2024-01-16 01:30 | PC.NURSE ---
Pt in ultrasound
--- NOTE | 2024-01-16 01:30 | PC.NURSE ---
Pt to ultrasound via wheelchair
[2024-01-16 01:44] LABS: HIV (1&2) Antibody Rapid NONREACTIVE (NONREACTIVE)
--- NOTE | 2024-01-16 01:53 | PC.NURSE ---
pt back from ultrasound
--- NOTE | 2024-01-16 01:54 | PC.NURSE ---
Pt back from ultrasound
[2024-01-16 01:58] VITALS: BP 132/92; PULSE 70; O2SAT 99
[2024-01-16 02:06] VITALS: BP 129/95; PULSE 72; RESP 18; TEMP 36.7; O2SAT 99
[2024-01-18 05:11] LABS: HCV Ab Non Reactive (Non Reactive)
== END 2024-01-16 02:12 | disposition home or self-care (01) ==
PROVIDERS: Emergency Provider Emergency Medicine; PCP Nurse Practitioner Family
DX: R10.31 Right lower quadrant pain (principal)
CPT/HCPCS: 74176; 76830; 80053; 81001; 84703; 85025; 86803; 87389; 96374; 96375; 99284; J0131; J2405

== ENCOUNTER 2024-01-25 11:15 | Outpatient (CLI) | payer MEDICAID, SELFPAY | END 2024-01-25 23:59 | disposition home or self-care (01) | LOC: LAB.DROPOF 01-26 09:58 | PROVIDERS: PCP Family Medicine; Visit Provider Family Medicine | DX: R39.9 Unspecified symptoms and signs involving the genitourinary system (principal) | CPT/HCPCS: 87086 ==

== ENCOUNTER 2024-04-16 23:29 | Emergency (ER) | payer MEDICAID, SELFPAY ==
--- NOTE | 2024-04-16 23:32 | ED_ITS ---
Discharge Plan Disposition Patient Disposition: Home, Self-Care Prescriptions Prescriptions: New ibuprofen 800 mg tablet 800 mg PO Q8H PRN (Reason: pain) Qty: 20 0RF sulfamethoxazole-trimethoprim [Bactrim DS] 800-160 mg tablet 2 tab PO BID 7 Days Qty: 28 0RF No Action esomeprazole magnesium 40 mg capsule,delayed release(DR/EC) See Rx Instructions .ROUTE .COMPLEX Qty: 90 3RF Dose Instruction: TAKE 1 CAPSULE 1 TIME EACH DAY Rx Instructions: TAKE 1 CAPSULE 1 TIME EACH DAY budesonide-formoterol [Symbicort] 80-4.5 mcg/actuation HFA aerosol inhaler 1 inh inhalation BID Qty: 10.2 2RF albuterol sulfate 90 mcg/actuation HFA aerosol inhaler 2 puff INHALATION Q8H Qty: 8.5 0RF gabapentin 800 mg tablet 800 mg PO TID Qty: 90 2RF buprenorphine-naloxone 8-2 mg tablet, sublingual 1 tab SUBLINGUAL DAILY Referrals Follow up/Referrals: Sergio Handy APRN [Primary Care Provider] - See instructions Activity Restrictions/Add. Instructions Additional Instructions/Restrictions: Continue to monitor the area as discussed. Please take antibiotics as prescribed. Please follow-up with your primary care provider. Please return to the emergency department if you develop any new or worsening symptoms or become concerned for your health. Clinical Impressions Clinical Impression: Abscess or cellulitis of chest wall Instructions Patient Instructions: DI for Skin Abscess Print Language Print Language: Belarusian Discharge ED Provider: Armin Gloria General Adult HPI General Chief complaint: Skin/Abscess/Foreign Body Stated complaint: Cyst on R shoulder Time Seen by Provider: 04/16/24 23:32 History of Present Illness HPI narrative: 33-year-old female presents with infected cyst on her right shoulder. She reports the cyst has been there for a long time but yesterday it had a head on it and they tried to pop it. Lots of cystic fluid and pus came out. Since then, the redness has been spreading. They marked the area. No fever at home. Patient does have history of IV drug use but reports she has been clean for some time and is on Suboxone. Related Data Home Medications ?Medication ?Instructions ?Recorded ?Confirmed buprenorphine 8 mg-naloxone 2 mg 1 tab sublingual DAILY SUBSTANCE 09/06/20 04/16/24 sublingual tablet ABUSE Previous Rx's ?Medication ?Instructions ?Recorded albuterol sulfate 90 mcg/actuation 2 puff inhalation Q8H Asthma #8.5 12/28/23 aerosol inhaler grams budesonide-formoterol HFA 80 1 inh inhalation BID #10.2 grams 12/28/23 mcg-4.5 mcg/actuation aerosol inhaler (Symbicort) esomeprazole magnesium 40 mg See Rx Instructions .Route 12/28/23 capsule,delayed release .COMPLEX #90 caps gabapentin 800 mg tablet 800 mg PO TID PERIPHEAL NEUROPATHY 03/29/24 #90 tabs ibuprofen 800 mg tablet 800 mg PO Q8H PRN pain #20 tabs 04/17/24 sulfamethoxazole 800 2 tab PO BID 7 days #28 tabs 04/17/24 mg-trimethoprim 160 mg tablet (Bactrim DS) Allergies Allergy/AdvReac Type Severity Reaction Status Date / Time acetaminophen (From Allergy Unknown Verified 03/29/24 10:51 TYLENOL-CODEINE #3) amoxicillin (AMOXICILLIN) Allergy Unknown Verified 03/29/24 10:51 codeine (From Allergy Unknown Verified 03/29/24 10:51 TYLENOL-CODEINE #3) Penicillins (PENICILLINS) Allergy Unknown Verified 03/29/24 10:51 latex Allergy Verified 03/29/24 10:51 tramadol (From Ultram) Allergy Verified 03/29/24 10:51 PFSH PFSH Disclaimer: The information contained in this section may have been updated after the patient was seen, as this information can be updated by other users. Medical History Hx of one miscarriage Hx of lipoma Hx of radicular syndrome of lower limb Hx of gastroesophageal reflux (GERD) History of asthma Surgical History Hx of dilation and curettage Hx of unilateral salpingectomy Hx of nevus excision History of section History of appendectomy Family History Father Colon cancer Other Family history of diabetes mellitus type II Family history of myocardial infarction Social History Smoking Status: Current every day smoker tobacco type: cigarettes packs per day: 1 years smoked: 16 second hand exposure: No alcohol intake: former year quit: 2009 substance use type: former substance user and opiates current occupational status: other Travel in the last 8 weeks: None household members: family housing: apartment lives independently: Yes marital status: single education level: high school special michelle needs: No agree to transfusion: No do you feel safe at home: Yes victim of physical abuse: No victim of emotional abuse: No victim of sexual abuse: No would you like helpful sources: No Have you lived/traveled outside [place] in past 30 days?: No Contact w/someone who lives/traveled outside [place] past 30 days?: No Exposure to someone with infectious disease in past 14 days?: No Do you have a fever (greater than 100.4 F or 38 C)?: No Have you tested positive for COVID-19: No Exposed to someone with COVID-19 in past 14 days?: No Do you have a sore throat?: No Do you have a cough?: No Do you have any weakness?: No Do you have any diarrhea?: No Are you experiencing any unusual bleeding?: No Do you have any muscle aches/pain?: No Do you have any abdominal pain?: No Are you experiencing loss of taste or smell?: No Other Medical History Have you received the Flu Vaccine for this season: No Have you received the Pneumonia Vaccine: No ROS Obtained: Yes All systems reviewed & no additional complaints except as documented Physical Exam General General appearance: alert and in no apparent distress Head Head exam: atraumatic and normocephalic Eye Eye exam: Present normal appearance, PERRL and EOMI ENT ENT exam: Present normal oropharynx and normal external ear exam Neck Neck exam: Present normal inspection and full ROM Chest Chest inspection: Present normal inspection and symmetric chest wall rise; Absent tenderness Respiratory Respiratory exam: Present normal lung sounds bilaterally; Absent respiratory distress Cardiovascular Cardiovascular exam: Present regular rate and normal rhythm Abdominal Exam Abdominal exam: Present soft; Absent distention, tenderness or guarding Extremities Exam Extremities exam: Present other (Focal fluctuant fluid collection over the right anterior shoulder. There is approximately 2 to 3 cm diameter area of erythema and induration surrounding the fluid collection. No streaking erythema beyond this); Absent edema or joint swelling Back Exam Back exam: Present normal inspection; Absent tenderness Neurological Exam Neurological exam: Present alert and oriented X3; Absent motor sensory deficit Psychiatric Psychiatric exam: Present normal affect and normal mood Skin Skin exam: Present warm, dry and normal color Lymphatic Lymphatic Findings: no adenopathy Medical Decision Making Medical Records Medical records reviewed: Yes I reviewed the patient's medical records. Screening: Per USPSTF and CDC recommendations, given the prevalence of disease in our region, it is our hospital?s policy to screen for HIV and viral Hepatitis for all patients aged 18 and over and those with ongoing risk factors. Leonardo Inquiry Pt receiving controlled substance: No Leonardo was queried for this patient: No Vital Signs: 04/16/24 23:35 04/17/24 00:19 Temperature 98.2 F 98.2 F Temperature Source Oral Oral Pulse Rate 71 Pulse Rate [Right Brachial] 91 H Respiratory Rate 16 18 Blood Pressure 121/81 Blood Pressure [Right Arm] 139/83 Blood Pressure Mean [Right Arm] 101 Blood Pressure Source Automatic Cuff Blood Pressure Source [Right Arm] Automatic Cuff Blood Pressure Position Sitting Blood Pressure Position [Right Arm] Sitting 02 Sat by Pulse Oximetry 100 Oxygen Delivery Method Room Air Room Air Lab Data Lab results reviewed: Yes I reviewed the patient's lab results. Orders (Tests/Meds): ED MEDICATIONS Discontinued Medications Generic Name Dose Route Start Last Admin Trade Name Freq PRN Reason Stop Dose Admin Lidocaine HCl 10 ml 04/16/24 23:56 04/17/24 00:07 Lidocaine 1% 10ml Mdv IJ 04/16/24 23:57 10 ml ONCE ONE Administration Trimethoprim/Sulfamethoxazole 2 each 04/16/24 23:53 04/17/24 00:07 Sulfa/Trimethoprim 1 Tablet PO 04/16/24 23:54 2 each ONCE ONE Administration Medical Decision Narrative: 33-year-old female presents with infected cyst on the shoulder.. History was obtained via interactive discussion with patient, family, chart review. On arrival, patient is [afebrile, hemodynamically stable, satting appropriately, alert, oriented x4, GCS 15], moving all extremities spontaneously. Full physical exam performed and significant for findings consistent with infected cyst and cellulitis Differential includes but is not limited to abscess, cellulitis, infected cyst, bacteremia. Blood work and IV antibiotics was considered, but deemed unnecessary due to patient is no longer a drug user, patient is no systemic signs or symptoms, infection is localized. Given patient history, exam and workup, patient's presentation most likely represents infected cyst with small surrounding cellulitis. The area was numbed with lidocaine and incised with an 11 blade. All of the purulent material was expressed and the wound was copiously irrigated. Patient was initiated on Bactrim for coverage of MRSA. She was discharged with prescription for Bactrim and given instructions regarding wound care and return precautions. Procedures Risk/Benefits of Procedure(s) Were Explained: Yes Critical Care Critical Care Time Critical Care Time: No
[2024-04-16 23:35] VITALS: BP 139/83; PULSE 91; RESP 16; TEMP 36.8; O2SAT 100; BMI 18.1
--- NOTE | 2024-04-16 23:47 | PC.NURSE ---
Pt awake alert and oriented Skin pink warm and dry Resp full and easy Speech clear and appropriate Abscess noted to right anterior shoulder. Area of redness marked. Report given to Jinny
--- NOTE | 2024-04-16 23:58 | PC.NURSE ---
at bedside to do I and D of abscess
[2024-04-17] MEDS: SULFA/TRIMETHOPRIM 1 TABLET 2 EACH PO (00:07)
[2024-04-17] MEDS: LIDOCAINE 1% 10ML MDV 10 ML IJ (00:07)
[2024-04-17 00:19] VITALS: BP 121/81; PULSE 71; RESP 18; TEMP 36.8; O2SAT 99
== END 2024-04-17 00:20 | disposition home or self-care (01) ==
PROVIDERS: Emergency Provider Emergency Medicine; PCP Nurse Practitioner Family
DX: L03.313 Cellulitis of chest wall (principal); F17.210 Nicotine dependence, cigarettes, uncomplicated
CPT/HCPCS: 99283

== ENCOUNTER 2024-06-13 13:39 | Outpatient (CLI) | payer MEDICAID, SELFPAY | END 2024-06-13 23:59 | disposition home or self-care (01) | LOC: LAB.DROPOF 06-15 11:24 | PROVIDERS: PCP Nurse Practitioner Family; Visit Provider Nurse Practitioner Family | DX: B37.9 Candidiasis, unspecified (principal) | CPT/HCPCS: 87086 ==

== ENCOUNTER 2024-09-14 23:52 | Emergency (ER) | payer MEDICAID, SELFPAY ==
[2024-09-15] VITALS (8 sets, daily range): BP systolic 92–113; BP diastolic 54–90; PULSE 60–81; RESP 14–17; TEMP 36.6–37.1; O2SAT 94–99; BMI 20.2
--- NOTE | 2024-09-15 00:38 | CT_ITS ---
PROCEDURE INFORMATION: Exam: CT Abdomen And Pelvis With Contrast Exam date and time: 09/15/2024 1:59 AM Age: 34 years old Clinical indication: Abdominal pain; Additional info: Rlq pain w/ abn vaginal bld TECHNIQUE: Imaging protocol: Computed tomography of the abdomen and pelvis with contrast. Total images: 278 Radiation optimization: All CT scans at this facility use at least one of these dose optimization techniques: automated exposure control; mA and/or kV adjustment per patient size (includes targeted exams where dose is matched to clinical indication); or iterative reconstruction. Contrast material: ISOVUE; Contrast volume: 75 ml; Contrast route: IV; COMPARISON: CT ABDOMEN PELVIS WO CON 01/16/2024 12:24 AM FINDINGS: Lungs: Lung bases are clear. Heart: Normal heart size. Liver: Normal. No mass. Gallbladder and biliary ducts: Normal. No calcified stones. No ductal dilation. Pancreas: Normal. No ductal dilation. Spleen: Normal. No splenomegaly. Adrenal glands: Normal. No mass. Kidneys and ureters: No hydronephrosis, nephrolithiasis, or renal mass. Stomach and bowel: Unremarkable stomach and duodenum. No ileus or bowel obstruction. Unremarkable small bowel and terminal ileum. Unremarkable colon. Collapsed rectum. Appendix: The appendix is not discretely visualized. Question prior appendectomy. Intraperitoneal space: Trace free pelvic fluid. No ascites. No free air. Vasculature: Nonaneurysmal abdominal aorta. Major abdominal vessels enhance appropriately. Pelvic phleboliths. Contrast flow artifact in the superior mesenteric vein. Lymph nodes: Unremarkable. No enlarged lymph nodes. Urinary bladder: Collapsed bladder. Reproductive: Physiologic uterus and left ovary. 5.5 cm complex cystic right adnexal mass, likely ovarian origin. Bones/joints: Unremarkable. No acute fracture. Soft tissues: Unremarkable. IMPRESSION: 1. 5.5 cm complex cystic right adnexal mass, likely ovarian origin. Follow-up pelvic ultrasound with Doppler. 2. Trace free pelvic fluid.
--- NOTE | 2024-09-15 00:38 | CT_ITS ---
PROCEDURE INFORMATION: Exam: CT Head Without Contrast Exam date and time: 09/15/2024 1:56 AM Age: 34 years old Clinical indication: Pain; Headache; Additional info: Severe REES, not thunderclap TECHNIQUE: Imaging protocol: Computed tomography of the head without contrast. Total images: 538 Radiation optimization: All CT scans at this facility use at least one of these dose optimization techniques: automated exposure control; mA and/or kV adjustment per patient size (includes targeted exams where dose is matched to clinical indication); or iterative reconstruction. COMPARISON: NM BONE SCAN WHOLE BODY 03/26/2020 1:00 PM FINDINGS: Brain: Normal. No hemorrhage. Unremarkable white matter. No mass effect. The robles-white interface is maintained. Cerebral ventricles: No ventriculomegaly. Paranasal sinuses: 2 cm retention cyst right maxillary sinus. Mastoid air cells: Visualized mastoid air cells are well aerated. Bones: Unremarkable. No acute fracture. Soft tissues: Unremarkable. IMPRESSION: 1. No acute intracranial process. 2. 2 cm retention cyst in the right maxillary sinus.
[2024-09-15 00:50] LABS: Hematocrit 41.1 % (37.0-47.0); Hemoglobin 13.6 g/dL (12.2-16.2); Immature Granulocytes % 0.2 %; Mean Corpuscular HGB Conc 33.1 g/dL (31.8-35.4); Mean Corpuscular Hemoglobin 30.0 pg (27.0-31.2); Mean Corpuscular Volume 90.7 fl (81-99); Nucleated Red Blood Cells % 0 %; Platelet Count 179 K/mm3 (142-424); Red Blood Count 4.53 M/mm3 (4.20-5.40); Red Cell Distribution Width-SD 44.1 fL; White Blood Count 6.6 K/mm3 (4.8-10.8)
[2024-09-15 00:59] LABS: Alanine Aminotransferase 14 U/L (12-78); Albumin Level 4.7 g/dl (3.5-5.0); Albumin/Globulin Ratio 1.9 (1.1-1.8); Alkaline Phosphatase 70 U/L (38-126); Anion Gap 10.5 mEq/L (5-15); Aspartate Amino Transferase 31 U/L (14-36); Bilirubin,Total 0.6 mg/dl (0.2-1.3); Blood Urea Nitrogen 17 mg/dl (7-17); Calcium 10.0 mg/dl (8.4-10.2); Carbon Dioxide 28 mmol/L (22.0-30.0); Chloride 101 mmol/L (98-107); Creatinine Clearance Estimated 103 mL/min (50-200); Creatinine,Serum 0.80 mg/dl (0.52-1.04); Estimated Glomerular Filt Rate 82 ml/min (>60); GFR (African American) 99 ML/MIN (>60); Globulin 2.5 g/dL (1.3-3.2); Glucose 105 mg/dl (74-100); Potassium 3.5 mmoL/L (3.5-5.1); Sodium 136 mmol/L (136-145); Total Protein,Serum 7.2 g/dl (6.3-8.2)
[2024-09-15 01:04] LABS: HCG Qualitative, Serum Negative (Negative)
[2024-09-15 01:10] LABS: Microscopic, Urine URINE MICROSCOPIC (MICROSCOPIC)
[2024-09-15 01:15] LABS: Color,Urine YELLOW (Yellow); Glucose,Urine (UA) Negative (Negative); Ketones,Urine Negative (Negative); Leukocyte Esterase,Urine Negative (Negative); PH,Urine 6.0 (5.0-8.5); Protein,Urine Negative (Negative); Specific Gravity, Urine 1.025 (1.005-1.030); Urobilinogen,Urine 0.2 EU/dl (0.2)
[2024-09-15 01:20] LABS: Bilirubin,Urine 1+ (Negative)
[2024-09-15 01:25] LABS: Bacteria,Urine 1+ /lpf
[2024-09-15 01:41] LABS: Magnesium 1.5 mg/dl (1.6-2.3)
[2024-09-15] MEDS: METOCLOPRAMIDE 10MG TABLET 10 MG PO (02:05)
[2024-09-15] MEDS: IOPAMIDOL-370 (76%);100ML BOTTLE 75 ML IV (02:05)
[2024-09-15] MEDS: KETOROLAC 30MG/ML VIAL 30 MG IV (02:05)
[2024-09-15] MEDS: SODIUM CHLORIDE 0.9% 10ML SYR (RAD ONLY) 10 ML IV (02:06)
[2024-09-15] MEDS: LACTATED RINGERS 1000ML 1,000 ML 999 ML IV (02:06)
--- NOTE | 2024-09-15 03:47 | US_ITS ---
PROCEDURE INFORMATION: Exam: US Pelvis, Transvaginal, Non-Obstetric; US Duplex Artery and Vein of the Abdominal and/or Reproductive Organs. Complete Ovaries Exam date and time: 09/15/2024 3:59 AM Age: 34 years old Clinical indication: Pelvic pain; Additional info: Large right adnexal mass, rlq pain, R/O torsion TECHNIQUE: Imaging protocol: Real-time transvaginal pelvic (non-obstetric) ultrasound with image documentation. Transvaginal imaging was used for better evaluation of the endometrium, adnexa, and/or cervix. Real-time duplex ultrasound scan of the arterial and venous flow with color Doppler flow and spectral waveform analysis with image documentation. Duplex exam was performed to evaluate for torsion and other vascular conditions. COMPARISON: US TRANSVAGINAL 01/16/2024 1:26 AM FINDINGS: Uterus: Uterus measures 7.6 x 3.3 x 4.5 cm in size. No myometrial mass. Endometrium: 0.5 cm in thickness. Right ovary: 5.3 x 6.1 x 4.5 cm in size. 5.1 x 5.2 x 4.1 cm heterogeneous hypo to isodense lesion. Normal arterial and venous flow. Left ovary: 3.0 x 3.0 x 1.6 cm in size. No mass. Small follicles. Normal arterial and venous flow. Urinary bladder: Not imaged. Intraperitoneal space: Trace free fluid within pelvis. IMPRESSION: 1. No definite sonographic evidence of ovarian torsion. 2. Probable hemorrhagic RIGHT ovarian cyst. Recommend sonographic followup in 6 weeks to ensure resolution and exclude other etiologies.
[2024-09-15] MEDS: MAGNESIUM SULFATE IN WATER 2 GM/50 ML PIGGYBACK IV (04:38)
--- NOTE | 2024-09-15 05:29 | ED_ITS ---
Discharge Plan Disposition Patient Disposition: Home, Self-Care Condition: Good Prescriptions Prescriptions: No Action esomeprazole magnesium 40 mg capsule,delayed release(DR/EC) See Rx Instructions .ROUTE .COMPLEX Qty: 90 3RF Dose Instruction: TAKE 1 CAPSULE 1 TIME EACH DAY Rx Instructions: TAKE 1 CAPSULE 1 TIME EACH DAY albuterol sulfate 90 mcg/actuation HFA aerosol inhaler 2 puff INHALATION Q8H Qty: 8.5 0RF azelastine 137 mcg (0.1 %) spray,non-aerosol 2 spray intranasal BID Qty: 30 2RF Rx Instructions: administer into each nostril buprenorphine-naloxone 8-2 mg tablet, sublingual 1 tab SUBLINGUAL DAILY gabapentin 800 mg tablet 800 mg PO TID Qty: 90 1RF Referrals Follow up/Referrals: Sergio Handy APRN [Primary Care Provider, [facility]] - See instructions Activity Restrictions/Add. Instructions Additional Instructions/Restrictions: You were evaluated in the ER and are believed to be appropriate for discharge at this time. Take Tylenol and ibuprofen if needed for pain, do not exceed the recommended dose on the bottle. Drink water and eat a small snack each time you take these medications to avoid side effects. Monitor your vaginal bleeding as discussed, if you soak through more than 1 pad per hour or passing large clots, return to the ER. If you have severe abdominal pain or believe your bleeding is causing significant blood loss and lightheadedness, return to the ER. Make an appointment with your primary care doctor and your OB for immediate reevaluation and recheck. Return to the ER with any new, worsening, or otherwise concerning symptoms as discussed. Clinical Impressions Clinical Impression: Abnormal uterine bleeding, Headache, Hemorrhagic cyst of right ovary Stand Alone Forms Stand Alone Forms: Work/School Release Instructions Patient Instructions: Ovarian Cyst, DI for Headache Print Language Print Language: Tunisian Discharge ED Provider: Katerina Blanchard General Adult HPI General Chief complaint: PAIN Stated complaint: ovarian cyst, pain lower R abd, REES Time Seen by Provider: 09/15/24 00:45 Mode of Arrival: Ambulatory Source of Information: Patient and Spouse Description of Symptoms (Recalled from ER Triage Doc. by RN): C/O SEVERE HEADACHE, AND C/O PAIN TO RIGHT LOWER QUAD, REPORTS ADNORMAL VAGINAL BLEEDING, AND NAUSEA History of Present Illness HPI narrative: 34-year-old female presents to the ER complaining of headache for multiple days. She reports it was not thunderclap in onset and she has no numbness, tingling, or weakness. She has taken Tylenol, ibuprofen, Excedrin without significant relief. Patient also complains of right lower quadrant abdominal pain in the setting of reported ovarian cyst that was identified in December. Additionally she states she has been having abnormal periods for the last few months. She states last month she had only bled for 1 to 2 days, 2 weeks ago she had 1 day of bleeding and then in the last 24 hours she started having normal period-like vaginal bleeding again. She is not having significant abdominal cramping, not passing clots. She denies excessive bleeding, not bleeding through more than 1 pad per hour. She is not specifically concerned about the volume of bleeding but just the fact that her periods have been irregular. She had a negative test at home last week. She has no vomiting though she is nauseous. Other than no history of other abdominal surgeries. Right lower quadrant abdominal pain has been constant and progressive in the last few days, not sudden in onset. reports having episodes of sweats with no documented fever. No chest pain or difficulty breathing. No dysuria or hematuria. No other complaints or concerns. Related Data Home Medications ?Medication ?Instructions ?Recorded ?Confirmed buprenorphine 8 mg-naloxone 2 mg 1 tab sublingual VERONIQUE Y SUBSTANCE 09/06/20 09/15/24 sublingual tablet ABUSE Previous Rx's ?Medication ?Instructions ?Recorded albuterol sulfate 90 mcg/actuation 2 puff inhalation Q 8H Asthma #8.5 12/28/23 aerosol inhaler grams esomeprazole magnesium 40 mg See Rx Instructions .Rout e 12/28/23 capsule,delayed release .COMPLEX #90 caps gabapentin 800 mg tablet 800 mg PO TID PERIPHEAL NEUR OPATHY 06/29/24 #90 tabs azelastine 137 mcg (0.1 %) nasal 2 spray intranasal BI D #30 mL 09/04/24 spray Allergies Allergy/AdvReac Type Severity Reaction Status Date / Time acetaminophen (From Allergy Unknown Verified 09/04/24 15:39 TYLENOL-CODEINE #3) amoxicillin (AMOXICILLIN) Allergy Unknown Verified 09/04/24 15:39 codeine (From Allergy Unknown Verified 09/04/24 15:39 TYLENOL-CODEINE #3) Penicillins (PENICILLINS) Allergy Unknown Verified 09/04/24 15:39 latex Allergy Verified 09/04/24 15:39 tramadol (From Ultram) Allergy Verified 09/04/24 15:39 [facility] Disclaimer: The information contained in this section may have been updated after the patient was seen, as this information can be updated by other users. Medical History (Updated 09/15/24 @ 06:31 by Katerina Blanchard MD) Abrasion of right ear canal Fluid level behind tympanic membrane of right ear Right ear pain Hx of one miscarriage Hx of lipoma Hx of radicular syndrome of lower limb Hx of gastroesophageal reflux (GERD) History of asthma Surgical History Hx of dilation and curettage Hx of unilateral salpingectomy Hx of nevus excision History of section History of appendectomy Family History Father Colon cancer Other Family history of diabetes mellitus type II Family history of myocardial infarction Social History Smoking Status: Current every day smoker tobacco type: cigarettes packs per day: 1 years smoked: 16 second hand exposure: No alcohol intake: former year quit: 2009 substance use type: former substance user and opiates current occupational status: other Travel in the last 8 weeks?: None household members: family housing: apartment lives independently: Yes marital status: single education level: high school special michelle needs: No agree to transfusion: No do you feel safe at home: Yes victim of physical abuse: No victim of emotional abuse: No victim of sexual abuse: No would you like helpful sources: No Have you lived/traveled outside [place] in past 30 days?: No Contact w/someone who lives/traveled outside [place] past 30 days?: No Exposure to someone with infectious disease in past 14 days?: No Do you have a fever (greater than 100.4 F or 38 C)?: No Have you tested positive for COVID-19?: No Exposed to someone with COVID-19 in past 14 days?: No Do you have a sore throat?: No Do you have a cough?: No Do you have any weakness?: No Do you have any diarrhea?: No Are you experiencing any unusual bleeding?: No Do you have any muscle aches/pain?: No Do you have any abdominal pain?: Yes Are you experiencing loss of taste or smell?: No Other Medical History Have you received the Flu Vaccine for this season: No Have you received the Pneumonia Vaccine: No ROS Obtained: Yes Systems reviewed as appropriate & no additional complaints except as documented Per HPI Physical Exam General General appearance: alert and in no apparent distress Head Head exam: atraumatic and normocephalic Eye Eye exam: Present PERRL and EOMI; Absent nystagmus ENT ENT exam: Present mucous membranes moist Neck Neck exam: Present normal inspection and full ROM Chest Chest inspection: Present symmetric chest wall rise Respiratory Respiratory exam: Present normal lung sounds bilaterally; Absent respiratory distress, wheezes or stridor Cardiovascular Cardiovascular exam: Present regular rate and normal rhythm Abdominal Exam Abdominal exam: Present soft, tenderness (Right lower quadrant) and guarding (Voluntary); Absent distention, rebound or rigidity External exam: Present normal external exam Speculum exam: Present vaginal bleeding Bimanual exam: Present right adnexal tenderness Extremities Exam Extremities exam: Present full ROM; Absent tenderness or edema Neurological Exam Neurological exam: Present alert and oriented X3; Absent motor sensory deficit Psychiatric Psychiatric exam: Present normal affect and normal mood Skin Skin exam: Present warm and dry Medical Decision Making Medical Records Medical records reviewed: Yes I reviewed the patient's medical records. Screening: Per USPSTF and CDC recommendations, given the prevalence of disease in our region, it is our hospital?s policy to screen for HIV and viral Hepatitis for all patients aged 18 and over and those with ongoing risk factors. Leonardo Inquiry Pt receiving controlled substance: No Vital Signs: 09/15/24 00:37 09/15/24 00:42 09/15/24 04:36 Temperature 98.7 F Temperature Source Oral Pulse Rate 81 64 Pulse Rate [Right Brachial] 80 Respiratory Rate 16 Blood Pressure 113/90 100/69 L Blood Pressure [Right Arm] 113/90 Blood Pressure Mean Blood Pressure Mean [Right Arm] 97 Blood Pressure Source [Right Arm] Automatic Cuff Blood Pressure Position [Right Arm] Supine 02 Sat by Pulse Oximetry 99 99 98 Oxygen Delivery Method Room Air Room Air 09/15/24 05:00 09/15/24 05:30 09/15/24 05:45 Temperature Temperature Source Pulse Rate 66 60 62 Pulse Rate [Right Brachial] Respiratory Rate 14 Blood Pressure 98/63 L 106/71 L Blood Pressure [Right Arm] Blood Pressure Mean Blood Pressure Mean [Right Arm] Blood Pressure Source [Right Arm] Blood Pressure Position [Right Arm] 02 Sat by Pulse Oximetry 97 94 L 97 Oxygen Delivery Method 09/15/24 06:21 Temperature Temperature Source Pulse Rate 67 Pulse Rate [Right Brachial] Respiratory Rate 16 Blood Pressure 92/54 L Blood Pressure [Right Arm] Blood Pressure Mean 64 Blood Pressure Mean [Right Arm] Blood Pressure Source [Right Arm] Blood Pressure Position [Right Arm] 02 Sat by Pulse Oximetry 985 H Oxygen Delivery Method Lab Data Lab Results 09/15/24 00:43: WBC 6.6, RBC 4.53, Hgb 13.6, Hct 41.1, MCV 90.7, MCH 30.0, MCHC 33.1, RDW 13.1, Plt Count 179, MPV 11.2 H, Neut % (Auto) 64.6, Lymph % (Auto) 29.6, [place] % (Auto) 4.2, Eos % (Auto) 0.6, Baso % (Auto) 0.8, Neut # (Auto) 4.3, Lymph # (Auto) 2.0, [place] # (Auto) 0.3, Eos # (Auto) 0.0, Baso # (Auto) 0.1, Sodium 136, Potassium 3.5, Chloride 101, Carbon Dioxide 28, Anion Gap 10.5, BUN 17, Creatinine 0.80, Estimated Creat Clear 103, Estimated GFR 82, Est GFR ( Amer) 99, Glucose 105 H, Calcium 10.0, Magnesium 1.5 L, Total Bilirubin 0.6, AST 31, ALT 14, Alkaline Phosphatase 70, Total Protein 7.2, Albumin 4.7, Globulin 2.5, Albumin/Globulin Ratio 1.9 H, Serum HCG, Qual Negative 09/15/24 01:06: Urine Color Yellow, Urine Appearance Clear, Urine pH 6.0, Ur Specific [place] 1.025, Urine Protein Negative, Urine Glucose (UA) Negative, Urine Ketones Negative, Urine Blood Negative, Urine Nitrate Negative, Urine Bilirubin 1+ A, Urine Urobilinogen 0.2, Ur Leukocyte Esterase Negative, Urine RBC None, Urine WBC None, Ur Squamous Epith Cells 5-10, Urine Bacteria 1+ 09/15/24 00:43 09/15/24 00:43 Orders (Tests/Meds): ED MEDICATIONS Generic Name Dose Route Start Last Admin Trade Name Hemalatha PRN Reason Stop Dose Admin Sodium Chloride 10 ml 09/15/24 02:05 09/15/24 02:06 Sodium Chloride 0.9% 10ml Syr (Rad Only) IV 10/15/24 02:04 10 ml NEEDED PRN Administration Maintain IV Site Discontinued Medications Generic Name Dose Route Start Last Admin Trade Name Hemalatha PRN Reason Stop Dose Admin Diphenhydramine HCl 25 mg 09/15/24 01:22 09/15/24 02:05 Diphenhydramine 50mg/Ml Vial IV 09/15/24 01:23 25 mg ONCE ONE Administration Lactated Ringer's 1,000 mls @ 999 mls/hr 09/15/24 01:23 09/15/24 02:06 Lactated Ringer's 1000 Ml Bag IV 09/15/24 02:23 999 mls/hr .Q1H1M ONE Administration Magnesium Sulfate 2 gm in 50 mls @ 50 mls/hr 09/15/24 03:58 09/15/24 04:38 Magnesium Sulfate 2gm/50ml Premix IV 09/15/24 04:57 50 mls/hr ONCE ONE Administration Iopamidol 75 ml 09/15/24 02:05 09/15/24 02:05 Iopamidol-370 (76%);100ml Bottle IV 09/15/24 02:06 75 ml ONCE ONE Administration Ketorolac Tromethamine 30 mg 09/15/24 01:22 09/15/24 02:05 Ketorolac 30mg/Ml Vial IV 09/15/24 01:23 30 mg ONCE ONE Administration Metoclopramide HCl 10 mg 09/15/24 01:22 09/15/24 02:05 Metoclopramide 10mg Tablet PO 09/15/24 01:23 10 mg ONCE ONE Administration ORDERS Category Date Time Status CT abdomen pelvis w con Stat Cat Scan 09/15/24 00:[address] head/brain wo con Stat Cat Scan 09/15/24 00:38 Completed US transvaginal Stat Exams 09/15/24 03:47 Completed CBC w/Auto Diff [Complete Blood Count Auto Diff] Stat Lab 09/15/24 00:43 Completed CMP [Comprehensive Metabolic Panel] Stat Lab 09/15/24 00:43 Completed HCG Qualitative, Serum Stat Lab 09/15/24 00:43 Completed Magnesium Stat Lab 09/15/24 00:43 Completed Urinalysis and Microscopic Stat Lab 09/15/24 01:06 Completed Medical Decision Narrative: In summary, this 34-year-old female presents to the emergency department today with right lower quadrant abdominal pain, headache, abnormal uterine bleeding. On initial evaluation patient is hemodynamically stable, afebrile, GCS 15, no neurologic deficits, abdominal exam with right lower quadrant tenderness and voluntary guarding but no rebound, not truly peritonitic, patient has vaginal bleeding with right adnexal tenderness, remainder of exam unremarkable. Differential diagnosis includes but is not limited to abnormal uterine bleeding, irregular menses, ovarian cyst, ovarian torsion, mass, hormone secreting tumor, , urinary tract infection, regarding patient's headache I considered the possibility of intracranial bleed though she has no red flag symptoms of headache and no neurologic deficits, I also considered the possibility of tumor, tension headache, migraine, electrolyte abnormality, dehydration, among other. Based on these concerns, I ordered serum labs, urine studies, CT imaging. Patient received Toradol, LR, Reglan, Benadryl initially for treatment of symptoms. Labs personally reviewed demonstrate negative test, CBC with no leukocytosis or anemia, normal platelets, CMP nonactionable, hypomagnesemia is present, IV magnesium being administered which may also help with headaches since patient reports this is still persistent. UA negative for findings of infection. CT abdomen pelvis personally interpreted demonstrates abnormality of the right ovary, see radiology read for final interpretation which comments that this is a complex mass measuring up to 5.5 cm. I am concerned that this size of mass could be causing the patient's symptoms including her pain. It is possible this is causing torsion though she did not have sudden onset of pain which makes it less likely. Transvaginal ultrasound was ordered. I am concerned if this is truly a complex mass that it could be malignant or hormone secreting which could be causing the patient's abnormal uterine bleeding and other symptoms. Transvaginal ultrasound resulted demonstrating hemorrhagic ovarian cyst with no evidence of torsion. See radiology read for final interpretation. On reassessment patient states her headache is improved, other symptoms are also dramatically improved. She states she feels well at this time. Patient has an OB with which she has a good relationship. I encouraged her to make an appointment for close outpatient follow-up for reevaluation of the cyst and abnormal uterine bleeding. Patient is appropriate for discharge and comfortable with this plan. Patient was given instructions on symptomatic monitoring and management, follow up instructions, and return precautions for the emergency department. Patient indicated understanding and was discharged in stable condition. Critical Care Critical Care Time Critical Care Time: No
== END 2024-09-15 06:41 | disposition home or self-care (01) ==
PROVIDERS: Emergency Provider Emergency Medicine; PCP Nurse Practitioner Family
DX: N93.9 Abnormal uterine and vaginal bleeding, unspecified (principal); N83.201 Unspecified ovarian cyst, right side; R51.9 Headache, unspecified
CPT/HCPCS: 70450; 74177; 76830; 80053; 81001; 83735; 84703; 85025; 96361; 96365; 96375; 99285; J1200; J1885; J3475; J7120; Q9967